=== PATIENT | female | born 1970 | race Caucasian/White ===

== ENCOUNTER 2019-06-02 08:35 | Inpatient (IN) ==
[2019-06-02] MEDS ORDERED: ZOFRAN IV ONE ×2 (09:15→12:41)
[2019-06-02] MEDS ORDERED: NS 1,000 ML IV ONE ×2 (09:15→13:35)
[2019-06-02 09:45] LABS: BILIRUBIN URINE NEGATIVE (NEGATIVE); BLOOD URINE 3+ (NEGATIVE); CLARITY VERY CLOUDY (CLEAR); COLOR YELLOW; KETONE URINE 2+(Moderate) mg/dL (NEGATIVE); LEUKOCYTES URINE TRACE (NEGATIVE); NITRITE URINE POSITIVE (NEGATIVE); PROTEIN URINE 2+(100 mg/dL) mg/dL (NEGATIVE); SP GRAVITY URINE 1.025; UROBILINOGEN URINE NORMAL
[2019-06-02 09:49] LABS: URINE BACTERIA 4+ /HFP; URINE CAST NONE SEEN /LPF; URINE CRYSTAL NONE SEEN /HPF; URINE EPITHELIAL CELLS <10 /HPF (<10); URINE RBC <10 /HPF (<10); URINE SOURCE CLEAN CATCH; URINE WBC <10 /HPF (<10); URINE YEAST NONE SEEN /HPF
[2019-06-02 09:56] LABS: BASO# 0.01 X1000 (0.0-0.2); BASO% 0.1 % (0.0-0.8); EOS# 0.04 X1000 (0.0-0.7); EOS% 0.3 % (0.0-10.0); HEMATOCRIT 48.7 % (37.0-47.0); HEMOGLOBIN 15.6 g/dL (12.0-16.0); IMM GRAN# 0.04 X1000 (0.0-0.04); IMM GRAN% 0.3 % (0.0-0.5); LYMPH# 0.92 X1000 (1.2-3.4); LYMPH% 6.3 % (20.5-51.1); MCH 28.8 PG (27-31); MONO# 0.68 X1000 (0.11-0.59); MONO% 4.6 % (1.7-9.3); MPV 10.9 FL (7.4-10.4); NEUT# 12.96 X1000 (1.4-6.5); NEUT% 88.4 % (42.2-75.2); PLT 308 X1000 (130-400); RBC 5.41 XMIL (4.2-5.4); RDW 13.5 % (11.5-14.5); WBC 14.65 X1000 (4.8-10.8)
[2019-06-02 10:06] LABS: AGAP 15; ALBUMIN 4.7 g/dL (3.5-5.0); ALKALINE PHOSPHATASE 97 U/L (32-104); BUN 11 mg/dL (8-22); CALCIUM 9.8 mg/dL (8.8-10.2); CHLORIDE 98 mmol/L (98-107); COSMO 285; CREATININE 0.7 mg/dL (0.5-0.9); ESTIMATED GFR > 60; GLUCOSE 140 mg/dL (70-104); GOT 31 U/L (10-30); GPT 36 U/L (10-36); POTASSIUM 3.7 mmol/L (3.5-5.1); SODIUM 142 mmol/L (136-145); TCO2 29 mmol/L (25-35); TOTAL PROTEIN 8.6 g/dL (6.3-8.3)
[2019-06-02] MEDS ORDERED: ROCEPHIN 1 GM in NS 50 ML IV ONE (10:34)
--- NOTE | 2019-06-02 11:37 | EKG Report ---
Test Performed on : 06/02/2019 09:39:18 AM Test Reason : CP Blood Pressure : / mmHG Vent. Rate : 077 BPM Atrial Rate : 077 BPM P-R Int : 124 ms QRS Dur : 084 ms QT Int : 398 ms P-R-T Axes : 024 029 031 degrees QTc Int : 450 ms Normal sinus rhythm. Normal ECG When compared with ECG of 30-NOV-2010 09:00, No significant change was found Unconfirmed Result
--- NOTE | 2019-06-02 13:12 | Diag Imaging Result Doc PS360 ---
EXAM: CT ABD/PELVIS W/IV CONT ONLY HISTORY: abd pain, elvated WBC, N/V/D TECHNIQUE: CT abdomen and pelvis with intravenous contrast COMPARISON: 03/14/2018 FINDINGS: The gallbladder has been removed. There is fatty infiltration of the liver. Tiny hiatal hernia. Normal spleen, pancreas, adrenal glands, and kidneys. No hydronephrosis. Normal aorta. There are air and fluid distended loops of small bowel in the mid abdomen measuring up to 4 cm in diameter. There is air and fluid within a nondistended colon. No inflammation about the cecum. No abscess. There are small bilateral ovarian cysts in addition to a 2.6 cm left ovarian cyst. The uterus has been removed. Urinary bladder is only mildly distended. IMPRESSION: 1.Partial or early small bowel obstruction 2.Cholecystectomy 3.Tiny hiatal hernia 4.There is fatty infiltration of the liver 5.Hysterectomy 6.Small left ovarian cyst This exam was performed using automated exposure control, adjustment of mA or kV according to patient size, and/or use of iterative reconstruction technique. Electronically signed by Nikita Ponce 06/02/2019 1:10 PM
--- NOTE | 2019-06-02 13:35 | PROVIDER DOCUMENTATION ---
This chart was entered by Rosangela Wright Scribe, acting as scribe for Jesika Razo CRNP. HPI-Abdominal Pain/GI Problem - General Chief Complaint: N/V/D Stated Complaint: VOMITING Time Seen by Provider: 06/02/19 09:03 Source: patient Allergies/Adverse Reactions: Patient Allergies Allergy/AdvReac Type Severity Reaction Status Date / Time No Known Allergies Allergy Verified 01/30/14 16:33 Home Medications: Home Medication List Medication Instructions Recorded Confirmed Last Taken Type Hydrocodone/APAP 7.5 mg/325 mg 1 each PO Q6H PRN PRN #20 tablet 01/31/14 03/14/18 03/13/18 Rx [[place]-7.5] 1 EACH Dextroamphetamine/Amphetamine 30 mg PO TID 03/14/18 03/14/18 1 Week Ago History [Adderall 30 mg Tablet] ~03/07/18 30 MG Diazepam [Valium] 5 mg PO BID 03/14/18 03/14/18 1 Week Ago History ~03/07/18 5 MG Polyethylene Glycol 3350 [Miralax] 17 gm PO DAILY #90 powd.pack 03/14/18 Unknown Rx - History of Present Illness-ABD Nature of Presenting Problems: 48 y/o female presents to ED with N/D, abdominal pain, and bloating onset 3 days ago and vomiting onset this morning. Pt reports her "stomach feels tight." Pt states her "chest felt tight" yesterday, but this has subsided. Pt is alert and oriented. Abdominal Pain Onset Location: reports: generalized abdomen Pain Radiation: reports: no radiation Quality of Pain: reports: aching Severity in ED: reports: mild Onset/Duration: reports: 3 days ago, this morning Timing: reports: still present Activities at Onset: reports: none Exposure to sick contacts?: No Modifying Factors: worse with: palpation Associated Symptoms: reports: diarrhea, nausea, vomiting, other (bloating; chest tightness) Last BM: unsure Dark Stools Present?: reports: none noticed Rectal Bleeding: reports: none Rectal Pain: reports: none Similar Symptoms Previously?: No Recently seen or treated by another doctor?: No Review of Systems - Adult - REVIEW OF SYSTEMS - ADULT Constitutional: denies: chills, fever Eyes: reports: no symptoms reported Ears, Nose, Mouth & Throat: reports: no symptoms reported Cardiovascular: denies: chest pain (tightness), palpitations Respiratory: denies: cough, shortness of breath Gastrointestinal: reports: abdominal pain, diarrhea, nausea, vomiting, other (bloating) Genitourinary: reports: no symptoms reported Musculoskeletal: denies: back pain, joint pain Integumentary: reports: no symptoms reported Neurological: denies: dizziness/vertigo, seizure Psychiatric: reports: no symptoms reported Endocrine: reports: no symptoms reported Hematologic/Lymphatic: reports: no symptoms reported Allergic/Immunologic: reports: no symptoms reported All Other Systems: Reviewed and Negative Past History - Adult - PAST MEDICAL HISTORY-ADULT Review of Records: reports: Old Records Reviewed, Nursing Assessment Review, Medications Reviewed Major Childhood Illnesses: reports: denies history Cardiovascular: reports: denies history Respiratory: reports: denies history Gastrointestinal: reports: denies history Obstetrical/Gynecological: reports: denies history Genitourinary: reports: denies history Musculoskeletal: reports: chronic pain (back pain) Neurological: reports: denies history Psychiatric: reports: anxiety, depression, ptsd Endocrine/Immune: reports: denies history Other Conditions: reports: denies history - PRIOR SURGERIES/PROCEDURES Surgical/Procedure History: reports: cholecystectomy, hysterectomy, other (facial surgery) - PRIOR HOSPITALIZATIONS Prior Hospitalizations: reports: none - IMMUNIZATION STATUS Childhood Immunizations: UTD Flu Vaccine: See Nurse Assessment - FAMILY HISTORY Family History: reviewed, not pertinent - SOCIAL HISTORY Smoking: greater than 1 pack/day Provider spent 3-5 mins advising pt. on dangers of tobacco.: Discussed manners to quit use, and f/u contacts for add'l counseling. Substance Use: none/never Alcohol Use Frequency: occasionally Living Situation: family Physical Exam-General - PHYSICAL EXAM-ADULT Initial Vital Signs Reviewed: Yes - CONSTITUTIONAL General Appearance: appears well, alert, no apparent distress - EYES Eyes: PERRL/EOMI, pink conjunctivae - HEAD, EARS, NOSE, MOUTH & THROAT HENMT: normocephalic/atraumatic, moist mucous membranes, normal ENT inspection - NECK Neck: non-tender, full range of motion - RESPIRATORY Respiratory: chest non-tender, lungs clear, normal breath sounds - CARDIOVASCULAR Cardiovascular: normal peripheral pulses, regular rate, rhythm - GASTROINTESTINAL (ABDOMEN) Abdominal Exam: soft, abnormal bowel sounds (hyperactive), distended, tenderness (periumbilical). negative: normal bowel sounds - MUSCULOSKELETAL Back Exam: normal inspection, no CVA tenderness Extremity: normal range of motion, non-tender - SKIN Integumentary: normal color, warm/dry - NEUROLOGIC Neurologic: grossly normal - PSYCHIATRIC Psych/Mental Status: normal mood/affect, normal thought content, normal thought process, oriented x 3 Progress - PLAN OF CARE/RESULTS Progress/Plan/Lab Results: Vital Signs - 8 hr 06/02/19 08:43 06/02/19 09:01 06/02/19 09:20 Temperature 97.5 F L Pulse Rate 86 Pulse Rate [Sitting] 85 Pulse Rate [Standing] 87 Pulse Rate [Supine] 78 Respiratory Rate 20 Blood Pressure 181/119 165/91 Blood Pressure [Sitting] 188/117 Blood Pressure [Standing] 176/109 Blood Pressure [Supine] 195/116 Orders Category Date Time Status ED: Orthostatic Vital Signs (E DIRECTED Care 06/02/19 08:52 Active Saline Loc NOW Care 06/02/19 09:16 Active AMYLASE [CHEM] Stat Lab 06/02/19 09:16 Ordered CBC WITH ELECTRONIC DIFF [HEME] Stat Lab 06/02/19 09:21 Ordered COMPREHENSIVE METABOLIC PANEL [CHEM] Stat Lab 06/02/19 09:21 Ordered TROPONIN T Stat Lab 06/02/19 09:16 Ordered UA NIMS W/REFLEX CULT PL [URINALYSIS] Stat Lab 06/02/19 09:21 Ordered 0.9% Sodium Chloride Inj [Ns] 1,000 ml Med 06/02/19 09:15 Active IV 999 mls/hr Ondansetron [Zofran] Med 06/02/19 09:15 Discontinued 4 mg IV NOW ONE EKG [EKG] Stat Ther 06/02/19 09:16 Ordered Laboratory Tests 06/02/19 06/02/19 09:32 09:35 WBC 14.65 H RBC 5.41 H Hgb 15.6 Hct 48.7 H MCV 90.0 MCH 28.8 MCHC 32.0 L RDW Std Deviation 13.5 Plt Count 308 MPV 10.9 H Immature Gran % (Auto) 0.3 Neut % (Auto) 88.4 H Lymph % (Auto) 6.3 L [place] % (Auto) 4.6 Eos % (Auto) 0.3 Baso % (Auto) 0.1 Immature Gran # (Auto) 0.04 Neut # (Auto) 12.96 H Lymph # (Auto) 0.92 L [place] # (Auto) 0.68 H Eos # (Auto) 0.04 Baso # (Auto) 0.01 Urine Source CLEAN CATCH Urine Color YELLOW Urine Clarity VERY CLOUDY A Urine pH 5.0 Ur Specific [place] 1.025 Urine Protein 2+(100 mg/dL) A Urine Ketones 2+(Moderate) A Urine Blood 3+ A Urine Nitrite POSITIVE A Urine Bilirubin NEGATIVE Urine Urobilinogen NORMAL Urine Microscopic RBC <10 Urine WBC TRACE A Urine Microscopic WBC <10 Ur Epithelial Cells <10 Urine Crystals NONE SEEN Urine Bacteria 4+ Urine Casts NONE SEEN Urine Yeast NONE SEEN Urine Glucose 1+(100 mg/dL) A Laboratory Tests 06/02/19 06/02/19 06/02/19 09:32 09:35 09:35 WBC RBC Hgb Hct MCV MCH MCHC RDW Std Deviation Plt Count MPV Immature Gran % (Auto) Neut % (Auto) Lymph % (Auto) [place] % (Auto) Eos % (Auto) Baso % (Auto) Immature Gran # (Auto) Neut # (Auto) Lymph # (Auto) [place] # (Auto) Eos # (Auto) Baso # (Auto) Sodium Potassium Chloride Carbon Dioxide Anion Gap BUN Creatinine Estimated GFR/1.73 m2 BUN/Creatinine Ratio Glucose Calculated Osmolality Calcium Total Bilirubin AST ALT Alkaline Phosphatase Troponin T < 0.010 Total Protein Albumin Globulin Albumin/Globulin Ratio Amylase 54 Urine Source CLEAN CATCH Urine Color YELLOW Urine Clarity VERY CLOUDY A Urine pH 5.0 Ur Specific [place] 1.025 Urine Protein 2+(100 mg/dL) A Urine Ketones 2+(Moderate) A Urine Blood 3+ A Urine Nitrite POSITIVE A Urine Bilirubin NEGATIVE Urine Urobilinogen NORMAL Urine Microscopic RBC <10 Urine WBC TRACE A Urine Microscopic WBC <10 Ur Epithelial Cells <10 Urine Crystals NONE SEEN Urine Bacteria 4+ Urine Casts NONE SEEN Urine Yeast NONE SEEN Urine Glucose 1+(100 mg/dL) A 06/02/19 06/02/19 09:35 09:35 WBC 14.65 H RBC 5.41 H Hgb 15.6 Hct 48.7 H MCV 90.0 MCH 28.8 MCHC 32.0 L RDW Std Deviation 13.5 Plt Count 308 MPV 10.9 H Immature Gran % (Auto) 0.3 Neut % (Auto) 88.4 H Lymph % (Auto) 6.3 L [place] % (Auto) 4.6 Eos % (Auto) 0.3 Baso % (Auto) 0.1 Immature Gran # (Auto) 0.04 Neut # (Auto) 12.96 H Lymph # (Auto) 0.92 L [place] # (Auto) 0.68 H Eos # (Auto) 0.04 Baso # (Auto) 0.01 Sodium 142 Potassium 3.7 Chloride 98 Carbon Dioxide 29 Anion Gap 15 BUN 11 Creatinine 0.7 Estimated GFR/1.73 m2 > 60 BUN/Creatinine Ratio 16 Glucose 140 H Calculated Osmolality 285 Calcium 9.8 Total Bilirubin 0.40 AST 31 H ALT 36 Alkaline Phosphatase 97 Troponin T Total Protein 8.6 H Albumin 4.7 Globulin 4.0 Albumin/Globulin Ratio 1.0 Amylase Urine Source Urine Color Urine Clarity Urine pH Ur Specific [place] Urine Protein Urine Ketones Urine Blood Urine Nitrite Urine Bilirubin Urine Urobilinogen Urine Microscopic RBC Urine WBC Urine Microscopic WBC Ur Epithelial Cells Urine Crystals Urine Bacteria Urine Casts Urine Yeast Urine Glucose called CT as no read, awaiting read Result Diagrams: 06/02/19 09:35 06/02/19 09:35 - EKG 1 Time of EKG reading by physician:: 09:39 EKG Read and Signed by:: Jose Kaur EKG Interpretation (*Must complete 3 of following elements*): Normal Rate: 77 Rhythm: NSR [place]: normal QRS: normal [place] Interval: normal ST Wave: normal - CT/MRI 1 CT Study: Abdomen, Pelvis Impression: See EMR Report (EXAM: CT ABD/PELVIS W/IV CONT ONLY HISTORY: abd pain, elvated WBC, N/V/D TECHNIQUE: CT abdomen and pelvis with intravenous contrast COMPARISON: 03/14/2018 FINDINGS: The gallbladder has been removed. There is fatty infiltration of the liver. Tiny hiatal hernia. Normal spleen, pancreas, adrenal glands, and kidneys. No hydronephrosis. Normal aorta. There are air and fluid distended loops of small bowel in the mid abdomen measuring up to 4 cm in diameter. There is air and fluid within a nondistended colon. No inflammation about the cecum. No abscess. There are small bilateral ovarian cysts in addition to a 2.6 cm left ovarian cyst. The uterus has been removed. Urinary bladder is only mildly distended. IMPRESSION: 1.Partial or early small bowel obstruction 2.Cholecystectomy 3.Tiny hiatal hernia 4.There is fatty infiltration of the liver 5.Hysterectomy 6.Small left ovarian cyst This exam was performed using automated exposure control, adjustment of mA or kV according to patient size, and/or use of iterative reconstruction technique. Electronically signed by Nikita Ponce 06/02/2019 1:10 PM 06/02/19 1310 Interpreting Physician: Nikita Ponce MD Dictated Date/Time: 06/02/19 1305 cc: Jesika Razo; None,PCP) - CONSULTS/PCP/HOSPITALIST Notification #1 *Consult/PCP/Hospitalist*: Time Discussed: 13:29 Reason/Comments: okay to admit at [facility] #2 Consult: Dr. Garay Time Discussed: 13:34 Consult Disposition: Admit Departure - Departure Date of Disposition Decision: 06/02/19 Time of Disposition Decision: 13:23 DIAGNOSIS: Partial small bowel obstruction UTI (urinary tract infection) Qualifiers: Urinary tract infection type: site unspecified Disposition: ADMITTED INPATIENT 09 Certified Medical Emergency: Emergent Condition: Stable Referrals and Follow-Ups: None,PCP [Primary Care Provider] - Discharge Education: Steps to Quit Smoking, [id number] - Critical Care Note This patient required my direct & personal management of CC.: No Attestation - Physician/ MARINO Attestation Patient care was provided by Advanced Practice Provider:: Yes Advanced Practice Provider:: Jesika Razo Advanced Practice Provider documentation review:: The Mid-level provider documentation, treatment plan and medical decision making was reviewed by the physician who agrees with all treatment and medical decision making by the P. The physician spent face to face time with patient:: No Advanced Practice Provider documentation review:: Supervising physician onsite and consulted in the evaluation and care of this patient. The physician did not have a face to face encounter with the patient. This chart was documented by the indicated scribe, (Rosangela Wright Scribe) and accurately reflects the services I performed and decisions made by me, Jesika Razo CRNP, as attested by the provider's signature.
--- NOTE | 2019-06-02 15:04 | GENERAL SURGERY CONSULTATION ---
DATE: 06/02/2019 REQUESTING PRACTITIONER: Jesika Razo, nurse practitioner in emergency room. REASON FOR CONSULTATION: Partial small bowel obstruction. HISTORY OF PRESENT ILLNESS: This is a 48-year-old female with a 3-day history of abdominal distention, bloating, multiple episodes of nausea and vomiting and multiple episodes of diarrhea. She does not know of any recent sick contacts. She also complains of some headache, malaise and some chills. The symptoms are exacerbated by walking around. No relieving factors. She had 1 prior episode which she came to the ER a year ago for milder symptoms. This is more severe. She was not admitted last year. PAST MEDICAL HISTORY: ADHD. PAST SURGICAL HISTORY: Laparoscopic cholecystectomy. ALLERGIES: No known drug allergies. HOME MEDICATIONS: None currently. SOCIAL HISTORY: She smokes tobacco and marijuana. She denies alcohol or other illicit drug use. FAMILY HISTORY: Reviewed and noncontributory. REVIEW OF SYSTEMS: Ten systems reviewed and negative except as noted above. PHYSICAL EXAMINATION: Vital Signs: Temperature 98.3 degrees, pulse 53, respirations 18, blood pressure 157/95, O2 saturation 96%. General: Well-developed, well-nourished female in no distress who looks stated age. HEENT: Normocephalic, atraumatic. Extraocular muscles intact. Pupils equal, round, reactive to light. Sclerae anicteric. Moist mucous membranes. Hearing grossly normal. No oral lesions. Neck: Supple. No thyromegaly. CV: Regular rate and rhythm. Respiratory: Bilateral breath sounds. No work of breathing GI: Soft, mildly distended. No organomegaly or mass. Mild tenderness. No rebound or guarding. Extremities: No clubbing, cyanosis, or edema. Skin: Warm and dry. No rash. Musculoskeletal: Moves all extremities equally and well. LABORATORY: White blood cell count 14,000, hemoglobin 15. Electrolytes reviewed and unremarkable. Liver function tests are unremarkable. Urinalysis appears positive for UTI. IMAGING: Abdominal pelvis CT scan shows multiple loops of distended bowel with air and fluid. There is also air and fluid in the colon, throughout the right transverse, descending colon, as well as rectum. No free air. No abscess. ASSESSMENT AND PLAN: A 48-year-old female with abdominal pain, nausea, vomiting, diarrhea, likely of infectious etiology, viral versus bacterial. There does not appear to be any significant mechanical obstruction. There are no acute surgical indications. Thank you for the consultation. cc: Jas Duran MD
[2019-06-02] MEDS: ZOFRAN IV PRN (15:17)
[2019-06-02] MEDS: MORPHINE IV PRN ×2 (17:20→21:17)
[2019-06-02] MEDS: ATIVAN IV PRN ×2 (17:21→23:08)
[2019-06-02] MEDS ORDERED: ATIVAN IV ONE (17:59)
--- NOTE | 2019-06-02 18:06 | HISTORY AND PHYSICAL ---
CHIEF COMPLAINT: Abdominal pain. HISTORY OF PRESENT ILLNESS: This is a 48-year-old female who came into the emergency room with a 2-day history of worsening generalized cramping abdominal pain associated with nausea and vomiting. She states that her last bowel movement was approximately 3 days ago. She states that her abdomen was getting more and more distended, because of which she had to come into the hospital for further care. She denies having any fever or dysuria. PAST MEDICAL HISTORY: 1. Attention deficit disorder. 2. Anxiety disorder. 3. Chronic back pain. SOCIAL HISTORY: Patient smokes 1 pack of cigarettes every day and occasionally drinks alcohol as well. She also smokes marijuana on a regular basis. FAMILY HISTORY: Noncontributory. ALLERGIES: No known drug allergies reported. CURRENT HOME MEDICATIONS: [place] 7.5 mg twice daily as needed for back pain, diazepam 5 mg twice daily as needed for anxiety symptoms, Adderall 30 mg orally 3 times a day. REVIEW OF SYSTEMS: A full 14-point review of systems was obtained that was pretty much the same as already has been explained in the HPI. PHYSICAL EXAMINATION: VITAL SIGNS: Temperature 98.0 degrees, pulse 81 per minute, respiratory rate 16 per minute, blood pressure 170/91, pulse ox 96% on room air. GENERAL: Patient is alert and oriented x3. She does not appear to be in any acute distress. HEENT: Within normal limits. NECK: Supple without any thyromegaly. LYMPHATICS: No lymphadenopathy noted in the neck region. CHEST: Chest wall is nontender. CARDIOVASCULAR SYSTEM: First and second heart sounds are audible without any murmurs or gallops. RESPIRATORY SYSTEM: Bilateral lung air entry is moderately decreased, but there are no rales or rhonchi present on auscultation. GASTROINTESTINAL SYSTEM: Abdomen is slightly distended. It is soft and slightly tender on deep palpation all over. No guarding or rigidity are present. There is also no rebound tenderness. Bowel sounds are hyperactive. NEUROLOGIC: No focal deficits are present. PSYCHIATRIC: Normal affect noted. GENITOURINARY: Deferred. MUSCULOSKELETAL SYSTEM: No deformities are present. INTEGUMENTARY: Skin is warm and dry without any rash. DIAGNOSTIC DATA: CBC shows WBC count of 14.65 with 88.4% neutrophils. Rest of the CBC is nondiagnostic. Comprehensive metabolic panel showed glucose level of 140. Rest of the CMP is nondiagnostic. Urinalysis showed trace WBCs with nitrite positive. CT scan of the abdomen and pelvis obtained at the emergency room with IV contrast showed partial or early small bowel obstruction. IMPRESSION: 1. Abdominal pain secondary to partial small-bowel obstruction. 2. Urinary tract infection. 3. Anxiety disorder. PLAN: The patient will be admitted here at [facility], and we are going to give her IV fluids and keep her n.p.o. I am going to give her morphine sulfate on as- needed basis for acute pain relief and give her ondansetron 4 mg IV every 4 hours as needed for nausea and vomiting relief. We will also give her lorazepam 1 mg IV as needed for anxiety symptoms and put a nicotine patch on, since she is a chronic smoker. We will also continue with ceftriaxone 1 gram IV every 24 hours which has already been started at the emergency room. We are going to place an NG tube and attach it to low intermittent suction and monitor her response to these measures. We will follow hospital course. cc: Taylor Garay MD
--- NOTE | 2019-06-02 18:10 | Diag Imaging Result Doc PS360 ---
EXAM: CHEST-PORTABLE HISTORY: NG-tube placement TECHNIQUE: Chest single view COMPARISON: 06/08/2012 FINDINGS: Nasogastric tube overlies the esophagus. Due to the technique it is difficult to see if it truly enters the stomach. No free air beneath the diaphragm. IMPRESSION: Additional films recommended. Electronically signed by Nikita Ponce 06/02/2019 6:08 PM
[2019-06-02] MEDS: NICODERM PATCH TD SCH (18:14)
[2019-06-02] MEDS ORDERED: CHLORASEPTIC SPRAY MT PRN (19:31)
[2019-06-03] MEDS ORDERED: HALDOL IV PRN (00:27)
[2019-06-03] MEDS: NS 1,000 ML IV SCH ×3 (00:47→16:10)
[2019-06-03 06:26] LABS: BASO# 0.01 X1000 (0.0-0.2); BASO% 0.1 % (0.0-0.8); EOS# 0.14 X1000 (0.0-0.7); EOS% 1.3 % (0.0-10.0); HEMATOCRIT 41.4 % (37.0-47.0); HEMOGLOBIN 13.1 g/dL (12.0-16.0); IMM GRAN# 0.02 X1000 (0.0-0.04); IMM GRAN% 0.2 % (0.0-0.5); LYMPH# 1.97 X1000 (1.2-3.4); LYMPH% 18.8 % (20.5-51.1); MCH 28.8 PG (27-31); MCHC 31.6 g/dL (33-37); MONO# 0.97 X1000 (0.11-0.59); MONO% 9.2 % (1.7-9.3); MPV 10.6 FL (7.4-10.4); NEUT# 7.39 X1000 (1.4-6.5); NEUT% 70.4 % (42.2-75.2); PLT 239 X1000 (130-400); RBC 4.55 XMIL (4.2-5.4); RDW 13.7 % (11.5-14.5)
[2019-06-03 06:48] LABS: AGAP 10; ALBUMIN 3.4 g/dL (3.5-5.0); ALKALINE PHOSPHATASE 75 U/L (32-104); BUN 7 mg/dL (8-22); CALCIUM 8.3 mg/dL (8.8-10.2); CHLORIDE 104 mmol/L (98-107); COSMO 276; CREATININE 0.6 mg/dL (0.5-0.9); ESTIMATED GFR > 60; GLUCOSE 100 mg/dL (70-104); GOT 45 U/L (10-30); GPT 47 U/L (10-36); SODIUM 139 mmol/L (136-145); TCO2 24 mmol/L (25-35); TOTAL PROTEIN 6.6 g/dL (6.3-8.3)
[2019-06-03] MEDS: ROCEPHIN 1 GM in NS 50 ML IV SCH (10:34)
[2019-06-03] MEDS: MORPHINE IV PRN ×2 (11:17→21:31)
[2019-06-03] MEDS: ATIVAN IV PRN (11:18)
--- NOTE | 2019-06-03 13:44 | Diag Imaging Result Doc PS360 ---
EXAM: ABDOMEN FLAT/UPRIGHT 06/03/2019 HISTORY: sbo TECHNIQUE: Flat and upright abdomen COMMENT: There is an NG tube with its tip in the fundus the stomach. There are surgical clips in the right upper quadrant. There is some stool in the colon without evidence of dilatation. The small bowel is not distended. There is no evidence organomegaly or mass. Compared to 03/14/2018 there is somewhat less stool in the colon. IMPRESSION: No evidence of bowel obstruction. Electronically signed by Pepe Burgos 06/03/2019 1:41 PM
[2019-06-03] MEDS: POTASSIUM CHLORIDE 20 MEQ/SWI 20 MEQ/100 ML IVPB IV SCH ×2 (13:52→16:06)
--- NOTE | 2019-06-03 15:45 | PROGRESS NOTE ---
DATE: 06/03/2019 SUBJECTIVE: Patient reports still having mild abdominal pain but she reports passing gases but no bowel movement yet. OBJECTIVE: Vitals: Temperature 98.1, heart rate 75, respiratory 16, blood pressure 141/97, O2 saturation 96% on room air. General: This is a 48-year-old female lying in bed in no acute distress. Cardiovascular: S1, S2 heard. No murmurs, gallops, or rubs. Regular rate and rhythm. Respiratory: Clear bilaterally to auscultation. No work of breathing or using accessory muscles. Abdomen: A little bit distended with bowel sounds present but distant. No guarding or rigidity, no rebound. Extremities: No clubbing, cyanosis, or edema. Peripheral pulses present in both legs. Neurologic: Patient alert, oriented x3, moves 4 extremities. LABORATORY DATA: Reviewed. Abdominal x-ray done today showed no evidence of bowel obstruction. ASSESSMENT AND PLAN: 1. Abdominal pain secondary to partial small bowel obstruction. The x-ray from today did not show any obstruction. General Surgery has been consulted. The NG tube is recollecting lot of drainage so at this point will see what is the baseline to switch to clear liquid diet. Will leave that decision to General Surgery. Will continue with IV fluids. Patient also had urinary tract infection. She is on ceftriaxone, will see what the urine culture shows. 2. For anxiety disorder will continue with home medications in this case lorazepam and Haldol IV as well. cc: Erik Joshi MD
[2019-06-03] MEDS: NICODERM PATCH TD SCH (16:06)
[2019-06-03] MEDS ORDERED: MINERAL OIL NG ONE (17:28)
--- NOTE | 2019-06-03 17:47 | GENERAL SURGERY PROGRESS NOTE ---
DATE: 06/03/2019 SUBJECTIVE: The patient complains of throat discomfort and pain from the NG tube in her nose. She denies abdominal pain. No flatus or bowel movement today. OBJECTIVE: Vital signs: She is afebrile. Vital signs are stable. NG tube output is recorded as 900 mL since it was put in. General: She is awake and anxious. Gastrointestinal: Soft, nontender, nondistended. LABORATORY: White blood cell count 10, hemoglobin 13, hematocrit 41. Electrolytes reviewed and notable for a potassium of 3.0. IMAGING: Abdominal x-ray today showed stool in the colon without dilation. The small bowel is not distended. ASSESSMENT AND PLAN: A 48-year-old female with recent history of nausea, vomiting, diarrhea, and abdominal pain. Her symptoms have gradually improved. However, she has had a significant amount of NG tube output today. We will plan a small bowel follow-through tomorrow. If it shows no obstruction, then we will remove the NG tube and advance her diet as tolerated. cc: Jas Duran MD
[2019-06-03] MEDS ORDERED: FLEET MINERAL OIL ENEMA PR ONE (19:35)
[2019-06-03] MEDS: ZOFRAN IV PRN (21:31)
[2019-06-04] MEDS: MORPHINE IV PRN ×2 (03:51→09:48)
[2019-06-04] MEDS: ZOFRAN IV PRN ×2 (03:51→09:49)
[2019-06-04] MEDS: NS 1,000 ML IV SCH ×3 (03:52→19:35)
[2019-06-04 06:30] LABS: BASO# 0.01 X1000 (0.0-0.2); BASO% 0.1 % (0.0-0.8); EOS# 0.16 X1000 (0.0-0.7); EOS% 1.2 % (0.0-10.0); HEMATOCRIT 40.4 % (37.0-47.0); HEMOGLOBIN 12.9 g/dL (12.0-16.0); IMM GRAN# 0.03 X1000 (0.0-0.04); IMM GRAN% 0.2 % (0.0-0.5); LYMPH# 2.01 X1000 (1.2-3.4); LYMPH% 15.3 % (20.5-51.1); MCH 28.9 PG (27-31); MCHC 31.9 g/dL (33-37); MCV 90.4 FL (81-99); MONO# 1.29 X1000 (0.11-0.59); MONO% 9.8 % (1.7-9.3); MPV 10.8 FL (7.4-10.4); NEUT# 9.63 X1000 (1.4-6.5); NEUT% 73.4 % (42.2-75.2); PLT 243 X1000 (130-400); RBC 4.47 XMIL (4.2-5.4); RDW 13.2 % (11.5-14.5); WBC 13.13 X1000 (4.8-10.8)
[2019-06-04 06:48] LABS: AGAP 10; BUN 6 mg/dL (8-22); CALCIUM 8.6 mg/dL (8.8-10.2); CHLORIDE 106 mmol/L (98-107); COSMO 277; CREATININE 0.5 mg/dL (0.5-0.9); ESTIMATED GFR > 60; GLUCOSE 90 mg/dL (70-104); POTASSIUM 3.5 mmol/L (3.5-5.1); SODIUM 140 mmol/L (136-145); TCO2 24 mmol/L (25-35)
[2019-06-04] MEDS: NICODERM PATCH TD SCH (09:27)
--- NOTE | 2019-06-04 10:17 | Diag Imaging Result Doc PS360 ---
EXAM: SMALL BOWEL SERIES ONLY HISTORY: nausea, vomiting, high ngt output TECHNIQUE: Eight films obtained COMPARISON: None. FINDINGS: Contrast was used to fill and distend the small bowel. Normal mucosal pattern. No bowel obstruction. No mass or stricture. Transit into the colon by 30 minutes. Normal terminal ileum. IMPRESSION: Normal small bowel series. Electronically signed by Nikita Ponce 06/04/2019 10:15 AM
[2019-06-04] MEDS: ROCEPHIN 1 GM in NS 50 ML IV SCH (10:38)
[2019-06-04] MEDS: ATIVAN IV PRN (10:38)
--- NOTE | 2019-06-04 12:17 | PROGRESS NOTE ---
DATE: 06/04/2019 SUBJECTIVE: The patient reports feeling fine. No abdominal pain. The NG tube output is definitely less in comparing with yesterday. OBJECTIVE: Vital Signs: Temperature 98.3 degrees, heart rate 83, respiratory rate 20, blood pressure 158/92, O2 saturation 97% on room air. General: This is a 48-year-old female, lying in bed in no acute distress. Cardiovascular: S1, S2 heard. No murmurs, gallops, or rubs. Regular rate and rhythm. Respiratory: Clear bilaterally to auscultation. No work of breathing or using accessory muscles. Abdomen: Soft, nontender to palpation. Bowel sounds present. No organomegaly. Extremities: No clubbing, cyanosis, or edema. Peripheral pulses present in both legs. Neurological: The patient alert and oriented x3. Moves all 4 extremities. IMAGING AND LABORATORY DATA: Reviewed. Small bowel x-ray showed normal studies. ASSESSMENT AND PLAN: 1. Partial small-bowel obstruction. The small bowel series shows normal exam, so at this point we are going to remove nasogastric tube. Will start clear liquids and see how this patient does. General Surgery is also following this patient. Will follow recommendations. 2. Urinary tract infection secondary to Escherichia coli. The patient is currently on ceftriaxone. I think, at this point, will continue with the same management. At discharge, considering that this Escherichia coli sensitive to cefazolin, we can send her home with a week of cephalexin. 3. Disposition. Will start clear liquid diet today. Will advance diet as tolerated. If she is doing better tomorrow, will let her go tomorrow. cc: Erik Joshi MD MTDOsman
[2019-06-04] MEDS: VALIUM PO SCH (21:21)
--- NOTE | 2019-06-04 21:28 | GENERAL SURGERY PROGRESS NOTE ---
DATE: 06/04/2019 SUBJECTIVE: The patient feels a lot better. She denies significant pain nausea or vomiting. She did have some diarrhea. She has started clear liquids and has been tolerating it. OBJECTIVE: Vital Signs: She is afebrile. Vital signs are stable. General: She is awake, alert, and oriented x3. No acute distress. Gastrointestinal: Soft, nontender, nondistended. LABORATORY: White blood cell count 13,000, hemoglobin 12.9. Electrolytes reviewed and unremarkable. IMAGING: Her small bowel follow-through was normal. ASSESSMENT AND PLAN: A 48-year-old female with abdominal pain, nausea, vomiting, and diarrhea. She does not have a bowel obstruction. There does not appear to be any acute surgical indication. I will sign off. cc: Jas Duran MD
[2019-06-05] MEDS: NORCO-7.5 PO PRN ×2 (05:49→13:54)
[2019-06-05 06:32] LABS: BASO# 0.02 X1000 (0.0-0.2); BASO% 0.2 % (0.0-0.8); EOS# 0.23 X1000 (0.0-0.7); EOS% 2.2 % (0.0-10.0); HEMATOCRIT 40.4 % (37.0-47.0); IMM GRAN# 0.03 X1000 (0.0-0.04); IMM GRAN% 0.3 % (0.0-0.5); LYMPH# 2.38 X1000 (1.2-3.4); LYMPH% 22.9 % (20.5-51.1); MCH 28.8 PG (27-31); MCHC 32.2 g/dL (33-37); MCV 89.6 FL (81-99); MONO% 10.6 % (1.7-9.3); MPV 11.1 FL (7.4-10.4); NEUT# 6.63 X1000 (1.4-6.5); NEUT% 63.8 % (42.2-75.2); PLT 245 X1000 (130-400); RBC 4.51 XMIL (4.2-5.4); RDW 13.3 % (11.5-14.5); WBC 10.39 X1000 (4.8-10.8)
[2019-06-05 06:42] LABS: AGAP 10; BUN 7 mg/dL (8-22); CALCIUM 8.8 mg/dL (8.8-10.2); CHLORIDE 103 mmol/L (98-107); COSMO 275; CREATININE 0.6 mg/dL (0.5-0.9); ESTIMATED GFR > 60; GLUCOSE 94 mg/dL (70-104); POTASSIUM 3.3 mmol/L (3.5-5.1); SODIUM 139 mmol/L (136-145); TCO2 25 mmol/L (25-35)
[2019-06-05] MEDS ORDERED: KLOR-CON PO ONE (07:11)
[2019-06-05] MEDS: VALIUM PO SCH (08:08)
[2019-06-05] MEDS: NICODERM PATCH TD SCH (08:10)
[2019-06-05] MEDS ORDERED: MACRODANTIN PO SCH (09:00)
--- NOTE | 2019-06-05 09:24 | Diag Imaging Result Doc PS360 ---
EXAM: KUB ABDOMEN - 06/05/2019 HISTORY: sbo TECHNIQUE: Portable AP spine abdomen COMPARISON: 06/03/2019 FINDINGS: There is some residual barium from the 06/04/2019 small bowel series in the colon. There is slight gaseous distention of stomach. The bowel gas pattern is otherwise unremarkable. There is no abnormal gaseous small bowel distention identified. There are surgical clips at the right upper quadrant. IMPRESSION: Slight gaseous distention of stomach. Otherwise unremarkable bowel gas pattern. Electronically signed by Liam Adams 06/05/2019 9:22 AM
[2019-06-05 11:16] VITALS: BP 139/79
--- NOTE | 2019-06-05 16:10 | DISCHARGE SUMMARY ---
ADMISSION DATE: 06/02/2019 DISCHARGE DATE: 06/05/2019 CONSULTATIONS: Dr. Jas Duran with General surgery. PERTINENT PROCEDURES: 1. Abdomen and pelvis CT with partial or early small bowel obstruction, cholecystectomy, tiny hiatal hernia. Fatty infiltration of liver, hysterectomy. Small left ovarian cyst. 2. Abdominal x-ray, no evidence of bowel obstruction. 3. Small bowel x-ray, normal small bowel series. 4. Abdominal x-ray, slight gaseous distention of the stomach, otherwise unremarkable bowel gas pattern. DISCHARGE DIAGNOSES: 1. Partial small bowel obstruction. Small bowel series shows a normal exam. She was followed by GI. She did have an NG tube inserted that had been discharged. The patient was started on clear liquids and advance as tolerated. She is now tolerating a GI soft diet, passing gas. She had a bowel movement. 2. Urinary tract infection, Escherichia coli that was negative for extended spectrum beta- lactamase, but is resistant to Bactrim, ampicillin and levofloxacin. She was switched from IV to p.o. Macrodantin and will be discharged with 5 more doses. 3. Attention deficit hyperactivity disorder. 4. Anxiety disorder. 5. Chronic back pain. HISTORY OF PRESENT ILLNESS: Ms. Stovall is a 48-year-old female who came to the ED complaining a 2-day history of worsening generalized cramping, abdominal pain associated with nausea and vomiting. Her last bowel movement was 3 days prior to admission. She felt her abdomen was getting more distended and came to the ED for further evaluation. There was question of an early or partial small-bowel obstruction. An NG tube was inserted and she was treated for urinary tract infection and brought general surgery on board. Continue with serial abdominal film. They did a small bowel follow through, which was normal. Her NG tube was removed. She was started on clear liquids and advanced to a GI soft diet, which she has tolerated well and will be discharged home today. Her KUB did not show any bowel obstruction. VITAL SIGNS: At time of discharge, temperature is 98.5 degrees, heart rate 82, respirations 16, blood pressure 139/79, O2 is 100% on room air. DISCHARGE DIET: GI soft. Continue to slowly advance as tolerated. DISCHARGE MEDICATIONS: 1. Adderall 30 mg p.o. t.i.d. 2. [place] 7.5/325 one each p.o. b.i.d. 3. Valium 5 mg p.o. b.i.d. 4. Macrodantin 50 mg p.o. b.i.d. for 5 more tablets. FOLLOW-UP AND DISCHARGE INSTRUCTIONS: Ms. Stovall is being discharged back home with self care. She is to follow up with her primary care provider within the next week. She can return to the ED or call 911 for any worsening or return of symptoms. Dictated by CHIKA Mohan for Eliecer Gunter MD cc: MD Mingo Horne MD Gregory S. Cheatham, MD
--- NOTE | 2019-06-05 19:48 | PROGRESS NOTE ---
DATE: 06/05/2019 SUBJECTIVE: Patient notes that she is feeling okay, although she attempted to drink some earlier, and her abdominal pain appeared to be getting worse. Therefore, she stopped. She denies any current fevers or chills. PHYSICAL EXAMINATION: Vital Signs: Reviewed. General: She is awake, alert. She is in no distress. HEENT: Normocephalic. Neck: Supple. Cardiovascular: Regular rate. No murmurs. Chest: Clear. Abdomen: Soft. Extremities: Moves all extremities. Neurologic: No changes. ASSESSMENT: 1. Partial small-bowel obstruction. 2. Urinary tract infection, on Rocephin. PLAN: We are going to continue patient in the hospital. We are going to check a KUB. Will attempt to advance her diet and will follow. ADDENDUM: Patient's KUB was normal. She was able to eat and drink without any difficulty, and therefore we will discharge her home. Please see full note. cc: Eliecer Gunter MD
== END 2019-06-05 15:10 | disposition home or self-care (01) | DRG 389 ==
LOC: P.ED 08:35 → SUATTDRO 13:54 → P.MEDSURG 13:54
PROVIDERS: ATTEND Family Medicine

== ENCOUNTER 2019-07-29 04:31 | Inpatient (IN) ==
[2019-07-29] MEDS ORDERED: ZOFRAN IV ONE ×2 (05:03→07:28)
[2019-07-29] MEDS ORDERED: DILAUDID IV ONE (05:03)
[2019-07-29 06:21] LABS: BASO# 0.04 X1000 (0.0-0.2); BASO% 0.1 % (0.0-0.8); EOS# 0.16 X1000 (0.0-0.7); EOS% 0.6 % (0.0-10.0); HEMATOCRIT 53.1 % (37.0-47.0); HEMOGLOBIN 16.8 g/dL (12.0-16.0); IMM GRAN# 0.11 X1000 (0.0-0.04); IMM GRAN% 0.4 % (0.0-0.5); LYMPH# 1.02 X1000 (1.2-3.4); LYMPH% 3.6 % (20.5-51.1); MCH 28.5 PG (27-31); MCHC 31.6 g/dL (33-37); MCV 90.2 FL (81-99); MONO# 0.95 X1000 (0.11-0.59); MONO% 3.3 % (1.7-9.3); MPV 11.7 FL (7.4-10.4); NEUT# 26.11 X1000 (1.4-6.5); PLT 317 X1000 (130-400); RBC 5.89 XMIL (4.2-5.4); RDW 13.1 % (11.5-14.5); WBC 28.39 X1000 (4.8-10.8)
[2019-07-29 06:26] LABS: ALBUMIN 4.5 g/dL (3.5-5.0); POTASSIUM 3.2 mmol/L (3.5-5.1); TOTAL BILIRUBIN 0.27 mg/dL (0.20-1.00)
--- NOTE | 2019-07-29 07:11 | PROVIDER DOCUMENTATION ---
HPI-Abdominal Pain/GI Problem - General Chief Complaint: SEPSIS ALERT - D Stated Complaint: POSS. SBO Time Seen by Provider: 07/29/19 04:51 Source: patient, family Allergies/Adverse Reactions: Patient Allergies Allergy/AdvReac Type Severity Reaction Status Date / Time No Known Allergies Allergy Verified 01/30/14 16:33 Home Medications: Home Medication List Medication Instructions Recorded Confirmed Last Taken Type Dextroamphetamine/Amphetamine 30 mg PO TID 03/14/18 07/29/19 1 Week Ago History [Adderall 30 mg Tablet] ~03/07/18 30 MG Diazepam [Valium] 5 mg PO BID 03/14/18 07/29/19 1 Week Ago History ~03/07/18 5 MG Hydrocodone/APAP 7.5 mg/325 mg 1 ea PO BID 06/02/19 07/29/19 Unknown History [[place]-7.5] - History of Present Illness-ABD Nature of Presenting Problems: 48 y/o WF c/o severe generalized abdo pain that started last night waking her up. She relates that she has had 15 episodes of vomiting and 20 episodes of diarrhea since onset adding that this is similar to her previous cases of SBO. Abdominal Pain Onset Location: reports: generalized abdomen Pain Radiation: reports: no radiation Quality of Pain: reports: aching, cramping Severity in ED: reports: moderate Onset/Duration: reports: 24 hours ago Timing: reports: still present Activities at Onset: reports: rest Exposure to sick contacts?: No Modifying Factors: improves with: movement, palpation Associated Symptoms: reports: diarrhea, nausea, vomiting Last BM: this morning Dark Stools Present?: reports: none noticed Rectal Bleeding: reports: none # of Diarrhea Episodes: 20 Rectal Pain: reports: none # of Vomiting Episodes: 15 Emesis Description: reports: clear Bruising or Bleeding Gums?: No Similar Symptoms Previously?: Yes Recently seen or treated by another doctor?: No Review of Systems - Adult - REVIEW OF SYSTEMS - ADULT Constitutional: reports: no symptoms reported, see HPI Eyes: reports: no symptoms reported, see HPI Ears, Nose, Mouth & Throat: reports: no symptoms reported, see HPI Cardiovascular: reports: no symptoms reported, see HPI Respiratory: reports: no symptoms reported, see HPI Gastrointestinal: reports: see HPI, abdominal pain, diarrhea, nausea, vomiting Genitourinary: reports: no symptoms reported, see HPI Musculoskeletal: reports: no symptoms reported, see HPI Integumentary: reports: no symptoms reported, see HPI Neurological: reports: no symptoms reported, see HPI Psychiatric: reports: no symptoms reported, see HPI Endocrine: reports: no symptoms reported, see HPI Hematologic/Lymphatic: reports: no symptoms reported, see HPI Allergic/Immunologic: reports: no symptoms reported, see HPI All Other Systems: Reviewed and Negative Past History - Adult - PAST MEDICAL HISTORY-ADULT Review of Records: reports: Nursing Assessment Review, Medications Reviewed, Social history reviewed & non-contributory. Major Childhood Illnesses: reports: denies history Cardiovascular: reports: denies history Respiratory: reports: denies history Gastrointestinal: reports: denies history Obstetrical/Gynecological: reports: denies history Genitourinary: reports: denies history Musculoskeletal: reports: chronic pain (back pain) Neurological: reports: denies history Psychiatric: reports: anxiety, depression, ptsd Endocrine/Immune: reports: denies history Other Conditions: reports: denies history - PRIOR SURGERIES/PROCEDURES Surgical/Procedure History: reports: cholecystectomy, hysterectomy, other (facial surgery) - PRIOR HOSPITALIZATIONS Prior Hospitalizations: reports: none - IMMUNIZATION STATUS Childhood Immunizations: UTD Flu Vaccine: See Nurse Assessment - FAMILY HISTORY Family History: reviewed, not pertinent Physical Exam-General - PHYSICAL EXAM-ADULT Initial Vital Signs Reviewed: Yes - CONSTITUTIONAL General Appearance: appears well, alert, no apparent distress - EYES Eyes: PERRL/EOMI - HEAD, EARS, NOSE, MOUTH & THROAT HENMT: normocephalic/atraumatic, moist mucous membranes - NECK Neck: non-tender, full range of motion, supple, normal inspection - RESPIRATORY Respiratory: chest non-tender, lungs clear, normal breath sounds, no pleuratic chest pain, no respiratory distress, no accessory muscle use - CARDIOVASCULAR Cardiovascular: normal peripheral pulses, regular rate, rhythm, no edema, no gallop, no JVD, no murmur - GASTROINTESTINAL (ABDOMEN) Abdominal Exam: normal bowel sounds, soft, no organomegaly, no pulsatile mass, tenderness - LYMPHATIC Lymphatic: no adenopathy - MUSCULOSKELETAL Back Exam: normal inspection, no CVA tenderness, no vertebral tenderness Extremity: normal range of motion, non-tender, normal gait, normal inspection, no pedal edema, no calf tenderness, normal capillary refill - SKIN Integumentary: normal color, normal turgor - NEUROLOGIC 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, grossly normal, no motor/sensory deficits - PSYCHIATRIC Psych/Mental Status: normal mood/affect, normal thought content, normal thought process, oriented x 3 Progress - PLAN OF CARE/RESULTS Progress/Plan/Lab Results: Vital Signs - 8 hr 07/29/19 04:35 Pulse Rate 93 H Respiratory Rate 19 Blood Pressure 154/106 O2 Sat by Pulse Oximetry 100 Laboratory Results - last 24 hr 07/29/19 07/29/19 04:57 04:57 WBC 28.39 H RBC 5.89 H Hgb 16.8 H Hct 53.1 H MCV 90.2 MCH 28.5 MCHC 31.6 L RDW Std Deviation 13.1 Plt Count 317 MPV 11.7 H Immature Gran % (Auto) 0.4 Neut % (Auto) 92.0 H Lymph % (Auto) 3.6 L [place] % (Auto) 3.3 Eos % (Auto) 0.6 Baso % (Auto) 0.1 Immature Gran # (Auto) 0.11 H Neut # (Auto) 26.11 H Lymph # (Auto) 1.02 L [place] # (Auto) 0.95 H Eos # (Auto) 0.16 Baso # (Auto) 0.04 Sodium 142 Potassium 3.2 L Chloride 97 L Carbon Dioxide 26 Anion Gap 19 BUN 14 Creatinine 1.0 H Estimated GFR/1.73 m2 59 BUN/Creatinine Ratio 14 Glucose 153 H Calculated Osmolality 287 Calcium 10.0 Total Bilirubin 0.27 AST 19 ALT 12 Alkaline Phosphatase 106 H Total Protein 9.0 H Albumin 4.5 Globulin 4.5 Albumin/Globulin Ratio 1.0 Orders Category Date Time Status Cardiac Monitoring DIRECTED Care 07/29/19 06:44 Active Notify MD of + Sepsis Screen NOW Care 07/29/19 06:44 Active Notify Physician As Ordered Care 07/29/19 06:44 Active CHEST-1 VIEW [RAD] Stat Exams 07/29/19 06:[address] ABD/PELVIS W/IV CONT ONLY [CT] Stat Exams 07/29/19 05:03 Completed BLOOD CULTURE [BLDCUL] Stat Lab 07/29/19 06:25 Ordered CBC WITH DIFF [HEME] Stat Lab 07/29/19 07:03 Ordered CBC WITH ELECTRONIC DIFF [HEME] Stat Lab 07/29/19 04:57 Results CK PROFILE [SP CHEM] Stat Lab 07/29/19 07:03 Ordered COMPREHENSIVE METABOLIC PANEL [CHEM] Stat Lab 07/29/19 04:57 Completed COMPREHENSIVE METABOLIC PANEL [CHEM] Stat Lab 07/29/19 07:03 Ordered LACTATE, PLASMA [CHEM] Lab 07/29/19 06:45 Uncollected LACTATE, PLASMA [CHEM] Lab 07/29/19 09:45 Uncollected LACTATE, PLASMA [CHEM] Lab 07/29/19 12:45 Uncollected LACTATE, PLASMA [CHEM] Stat Lab 07/29/19 06:25 Uncollected PROTIME WITH INR [COAG] Stat Lab 07/29/19 07:03 Ordered PTT [COAG] Stat Lab 07/29/19 07:03 Ordered TROPONIN T Stat Lab 07/29/19 07:03 Ordered URINALYSIS W/POSS RFLX CULT [URINALYSIS] Stat Lab 07/29/19 05:03 Uncollected Hydromorphone [Dilaudid] Med 07/29/19 05:03 Discontinued 0.5 mg IV NOW ONE Ondansetron [Zofran] Med 07/29/19 05:03 Discontinued 4 mg IV NOW ONE Oxygen Device Stat Oth 07/29/19 06:44 Active Result Diagrams: 07/29/19 04:57 07/29/19 04:57 - CONSULTS/PCP/HOSPITALIST Notification #1 *Consult/PCP/Hospitalist*: abi Time Discussed: : (admit to Dr Reed) Consult Disposition: Will see in ED - CHANGE OF SHIFT REPORT (ED Provider) 1 Report Given and Care Transferred to:: Dr Caldwell Time of Transfer: 07:11 Items Pending: Labs, CT/MRI Results Departure - Departure Date of Disposition Decision: 07/29/19 Time of Disposition Decision: 09: DIAGNOSIS: Partial small bowel obstruction Disposition: ADMITTED INPATIENT 09 Certified Medical Emergency: Emergent Condition: Fair Referrals and Follow-Ups: None,PCP [Primary Care Provider] - - Critical Care Note This patient required my direct & personal management of CC.: No Attestation - Physician/ MARINO Attestation Patient care was provided by Advanced Practice Provider:: No The physician spent face to face time with patient:: Yes Advanced Practice Provider documentation review:: Supervising physician onsite and consulted in the evaluation and care of this patient. The physician did have a face to face encounter with the patient.
[2019-07-29] MEDS ORDERED: NS 1,000 ML IV ONE ×3 (07:28→07:29)
--- NOTE | 2019-07-29 07:43 | Diag Imaging Result Doc PS360 ---
EXAM: CT ABD/PELVIS W/IV CONT ONLY INDICATION: possible SBO TECHNIQUE: This exam was performed using automated exposure control, adjustment of mA or kV according to patient size, and/or use of iterative reconstruction technique. COMPARISON: 06/02/2019 FINDINGS: There has been a prior cholecystectomy. The liver, spleen, pancreas, adrenal glands, kidneys, and urinary bladder are grossly unremarkable. There has been a prior hysterectomy. The appendix is not clearly identified. There is no secondary sign of appendicitis. There are multiple fluid-filled loops of small bowel throughout the abdomen with only mild distention. No clear transition point is appreciated. This is nonspecific but probably represents ileus, possibly related to enteritis. No definite bowel wall thickening is identified, however. There is nothing that would necessarily indicate obstruction. However, I suppose a low-grade obstruction is possible but less likely. No focal inflammatory changes or free abdominal gas is identified. IMPRESSION: Fluid-filled loops of small bowel throughout the abdomen with mild distention that are nonspecific. Consider ileus, possibly related to enteritis. Low-grade obstruction is less likely. Electronically signed by Dean Galarza 07/29/2019 7:41 AM
--- NOTE | 2019-07-29 07:46 | Diag Imaging Result Doc PS360 ---
EXAM: CHEST-1 VIEW INDICATION: possible sepsis TECHNIQUE: One view COMPARISON: 06/02/2019 FINDINGS: The lungs are grossly clear. There is no discrete pleural fluid collection or pneumothorax. The cardiomediastinal silhouette and central vasculature are grossly unremarkable. IMPRESSION: No evidence of acute pathology by plain radiograph. Electronically signed by Dean Galarza 07/29/2019 7:44 AM
[2019-07-29] MEDS ORDERED: ZOSYN 3.375 GM in NS 50 ML IV ONE (08:00)
[2019-07-29 08:08] LABS: INR 0.91; PROTIME 12.3 Seconds (11.0-16.0)
[2019-07-29 08:09] LABS: PTT 29.4 Seconds (22.3-41.8)
[2019-07-29 09:07] LABS: URINE SOURCE CLEAN CATCH
[2019-07-29 09:15] LABS: BILIRUBIN URINE NEGATIVE (NEGATIVE); BLOOD URINE NEGATIVE (NEGATIVE); COLOR YELLOW; GLUCOSE URINE NEGATIVE (NEGATIVE); KETONE URINE NEGATIVE (NEGATIVE); LEUKOCYTES URINE NEGATIVE (NEGATIVE); NITRITE URINE NEGATIVE (NEGATIVE); PROTEIN URINE 30 mg/dL (NEGATIVE); TURBIDITY URINE CLEAR (CLEAR); UROBILINOGEN URINE NORMAL (NORMAL)
[2019-07-29 09:16] LABS: UR EPITHELIAL CELLS <10 /HPF (<10); URINE BACTERIA NEGATIVE /HPF; URINE RBC <10 /HPF (<10); URINE WBC <10 /HPF (<10)
[2019-07-29 09:23] LABS: SP GRAVITY URINE < 1.005
[2019-07-29 10:15] LABS: BANDS 12 % (0-1); LYMPHS 4 % (21-51); MONO 4 % (1-9); SEGS 80 % (42-75)
--- NOTE | 2019-07-29 10:41 | HISTORY AND PHYSICAL ---
PRIMARY CARE PHYSICIAN: Listed as none. CHIEF COMPLAINT: Abdominal pain, nausea, vomiting and diarrhea that began last night and progressively worsened. HISTORY OF PRESENTING ILLNESS: This is a 48-year-old female who presents to [facility] ER after she began at work last night around 2 a.m. having left lower quadrant abdominal pain with around 15 episodes of vomiting and 20 episodes of diarrhea. States that she has had a history of a small bowel obstruction with her last one being 2 months ago. Workup showed a white blood cell count of 28.39. Her potassium was 3.2. Plasma lactate is normal at 1.2. Urinalysis was negative. We did a CT of the abdomen and pelvis that showed fluid-filled loops of small bowel throughout the abdomen with mild distention that are nonspecific. Consider an ileus, possibly related to enteritis. Low-grade obstruction is less likely. So she will be admitted for further evaluation and treatment. PAST MEDICAL HISTORY: Anxiety, depression, PTSD, some underlying kidney disease, and small bowel obstruction x2, the last one being 2 months ago. PAST SURGICAL HISTORY: Cholecystectomy, hysterectomy, and a facial surgery. FAMILY HISTORY: Reviewed and noncontributory. SOCIAL HISTORY: She currently lives alone. Smokes about a half a pack of cigarettes a day and has done so for 20+ years. Denies any alcohol or illicit drug use. ALLERGIES: She has no known drug allergies. HOME MEDICATIONS: She takes Adderall 30 mg p.o. t.i.d. and will be held, [place] 7.5 one p.o. b.i.d., and Valium 5 mg p.o. b.i.d. LABORATORY DATA: Showed a white blood cell count of 28.39, hemoglobin 16.8, hematocrit 53.1, platelets 317,000. PT and INR of 12.3 and 0.91. Sodium 142, potassium 3.2, chloride 97, CO2 26, BUN of 14, creatinine 1, glucose 153. Cardiac enzymes were negative. Plasma lactate of 1.2. Urinalysis was negative. Chest x-ray showed no evidence of acute pathology by plain radiograph. Abdomen and pelvic CT showed fluid-filled loops of small bowel throughout the abdomen with mild distention that are nonspecific. Consider ileus, possibly related to enteritis. Low-grade obstruction is less likely. REVIEW OF SYSTEMS: She denied any fever, chills, blurred vision, dizziness, chest pain, coughing, shortness of breath. She had left lower quadrant abdominal pain, nausea, vomiting, diarrhea, multiple episodes of each. Denied any burning or hurting with urination. PHYSICAL EXAMINATION: VITAL SIGNS: On arrival, she had a temperature of 97.5 degrees, pulse 93, blood pressure 154/106, saturating 100% on room air. GENERAL: This is a 48-year-old female who is lying in the bed and answers questions appropriately. HEENT: Normocephalic, atraumatic. Normal ENT inspection. Oropharynx and nares are clear. EYES: Pupils are equal, round, reactive to light and accommodation. Extraocular movements are intact. NECK: Normal inspection. Normal range of motion. LUNGS: Clear to auscultation bilaterally with equal lung expansion and chest wall movement. HEART: Regular rate and rhythm. No murmurs, rubs, or gallops. ABDOMEN: Soft. There is tenderness to palpation to the left lower quadrant. Bowel sounds were hypoactive. MUSCULOSKELETAL: She had 5/5 strength x4 extremities. NEUROLOGICAL: The cranial nerves 2-12 appear grossly intact. ASSESSMENT: 1. Nausea, vomiting, and diarrhea, intractable. 2. An ileus with possible enteritis. 3. Leukocytosis. 4. Hypokalemia. 5. Tobacco abuse. PLAN: She will be admitted to the medical unit and placed on telemetry. We will place her on a clear liquid diet. Normal saline at 125 mL an hour. We will supplement her potassium with 20 mEq IV q.4 hours x2 bags. Placed on Levaquin 500 mg IV every 24. Continue home medications as previously identified. Morphine 2 mg IV q.3 hours p.r.n., Zofran 4 mg IV q.4 hours p.r.n. Check stool Studies for WBC, CDiff, Culture and Shiga Toxin. Recheck a CBC and BMP in the a.m. Further orders after seen by attending. Dictated by CHIKA Bird for Jose Reed MD cc: CHIKA Bird patient with nausea/vomiting/diarrhea. abdominal exam pretty benign with little to no tenderness, minimal distention. most consistent with viral enteritis but can't entirely rule out ileus based on imaging, bowel sounds are a little hypoactive but definitely present. also with heavy nsaid use but no signs or symptoms of bleeding and hemoglobin is essentially normal. will treat supportively and monitor. check cdif given diarrhea. MTDD
[2019-07-29] MEDS: MORPHINE IV PRN (11:57)
[2019-07-29] MEDS: NS 1,000 ML IV SCH ×2 (12:19→20:38)
[2019-07-29] MEDS: LEVAQUIN 500 MG/D5W 500 MG/100 ML IVPB IV SCH (12:19)
[2019-07-29] MEDS: POTASSIUM CHLORIDE 20 MEQ/SWI 20 MEQ/100 ML IVPB IV SCH ×2 (13:57→18:49)
[2019-07-29] MEDS ORDERED: PNEUMOVAX 23 IM ONE (14:00)
[2019-07-29] MEDS: VALIUM PO SCH ×2 (14:39→20:38)
[2019-07-29] MEDS: PROTONIX PO SCH (18:53)
[2019-07-29] MEDS: NORCO-7.5 PO SCH (20:38)
[2019-07-30] MEDS: ZOFRAN IV PRN ×3 (02:52→22:02)
[2019-07-30] MEDS: PROTONIX PO SCH (06:18)
[2019-07-30 06:51] LABS: BASO# 0.02 X1000 (0.0-0.2); BASO% 0.2 % (0.0-0.8); EOS# 0.28 X1000 (0.0-0.7); EOS% 3.4 % (0.0-10.0); HEMATOCRIT 41.8 % (37.0-47.0); HEMOGLOBIN 13.1 g/dL (12.0-16.0); LYMPH# 2.85 X1000 (1.2-3.4); LYMPH% 34.5 % (20.5-51.1); MCHC 31.3 g/dL (33-37); MCV 92.5 FL (81-99); MONO# 0.49 X1000 (0.11-0.59); MONO% 5.9 % (1.7-9.3); MPV 11.4 FL (7.4-10.4); NEUT# 4.61 X1000 (1.4-6.5); PLT 214 X1000 (130-400); RBC 4.52 XMIL (4.2-5.4); RDW 13.2 % (11.5-14.5); WBC 8.25 X1000 (4.8-10.8)
[2019-07-30 07:27] LABS: AGAP 11; BUN 6 mg/dL (8-22); CALCIUM 7.7 mg/dL (8.8-10.2); CHLORIDE 106 mmol/L (98-107); COSMO 278; CREATININE 0.6 mg/dL (0.5-0.9); ESTIMATED GFR > 60; GLUCOSE 84 mg/dL (70-104); POTASSIUM 3.2 mmol/L (3.5-5.1); SODIUM 141 mmol/L (136-145); TCO2 24 mmol/L (25-35)
[2019-07-30 08:06] LABS: HEMOGLOBIN A1C 5.3 % (4.8-6.0)
[2019-07-30] MEDS: VALIUM PO SCH ×2 (08:46→20:41)
[2019-07-30] MEDS: NORCO-7.5 PO SCH ×2 (08:46→20:41)
[2019-07-30] MEDS: LEVAQUIN 500 MG/D5W 500 MG/100 ML IVPB IV SCH ×2 (08:47→12:56)
[2019-07-30] MEDS ORDERED: POTASSIUM CHLORIDE 60 MEQ in NS 500 ML IV ONE (09:30)
[2019-07-30] MEDS: NS 1,000 ML IV SCH ×3 (15:14→19:41)
[2019-07-30] MEDS: MORPHINE IV PRN (15:22)
[2019-07-30] MEDS ORDERED: G.I. COCKTAIL PO PRN (15:24)
--- NOTE | 2019-07-30 18:27 | PROGRESS NOTE ---
DATE: 07/30/2019 INTERVAL HISTORY: The patient still with some nausea, but no vomiting or diarrhea. Does report improvement in nausea with Zofran. Reports improvement in appetite. Still some epigastric discomfort which is somewhat improved since starting PPI. No hemoptysis, coffee-grounds emesis, or other sign or symptom of bleeding. REVIEW OF SYSTEMS: Twelve point review of systems negative except as per interval history. LABS: WBC 8.25, hemoglobin 13.1, hematocrit 41.8, platelets 214,000. Sodium 141, potassium 3.2, BUN 6, creatinine 0.6, glucose 84. Urinalysis unremarkable. VITALS: T-max 98.2 degrees, pulse 79, respirations 14, blood pressure 152/77, O2 saturation 98% on room air. PHYSICAL EXAMINATION: General: No acute distress. Vitals: As above. HEENT: Normocephalic, atraumatic. Mucous membranes no longer dry. Cardiovascular: Regular rate and rhythm. No murmurs noted. Pulmonary: Clear to auscultation bilaterally. No wheezing, rales, or rhonchi. Abdomen: Soft. Minimal epigastric tenderness without rebound or guarding. Bowel sounds positive. Extremities: Peripheral pulses intact. No clubbing, cyanosis, or edema. Neurologic: Cranial nerves intact. No focal deficits. Psychiatric: Normal mood and affect. Awake, alert, oriented x3. Skin: No new rashes or lesions identified. ASSESSMENT AND PLAN: 1. Nausea, vomiting, and diarrhea, suspect viral enteritis, also possible ileus on initial imaging. The patient has no further diarrhea. Still some nausea, but no further vomiting. Seems to be tolerating clear liquids pretty well. The patient reports still some epigastric discomfort, but improving appetite. We will go ahead and increase her to full liquids. Continue fluids. Recheck abdominal x-ray in the morning. If the patient does well overnight and x-ray looks okay, then may be able to advance diet to full in the morning and possibly discharge later tomorrow. 2. Epigastric pain, likely gastritis versus early peptic ulcer disease. Patient with heavy nonsteroidal anti-inflammatory drug use. Some epigastric pain. No signs or symptoms of bleeding, but suspected at least some gastritis, possibly even early peptic ulcer disease. We will continue proton pump inhibitor and we will also give a little better gastrointestinal cocktail to see if that provides her some relief. The patient counseled to avoid nonsteroidal anti-inflammatory drugs for the near future and use caution with them in the future. We will plan on discharging on Protonix. 3. Dehydration, improving with IV fluids. Continue hydration. 4. Anxiety continue home medication. 5. Chronic pain continue home medication. As she appears to be tolerating p.o., we will wean off of intravenous narcotics. 6. Attention deficit disorder. Holding home medicines for now. 7. Tobacco and THC use. The patient has been counseled on cessation.
[2019-07-31] MEDS: MORPHINE IV PRN ×3 (01:28→16:35)
[2019-07-31] MEDS: ZOFRAN IV PRN ×2 (01:29→09:57)
[2019-07-31] MEDS: NS 1,000 ML IV SCH (06:35)
[2019-07-31] MEDS: PROTONIX PO SCH (06:37)
[2019-07-31 06:54] LABS: BASO# 0.02 X1000 (0.0-0.2); BASO% 0.3 % (0.0-0.8); EOS% 3.1 % (0.0-10.0); HEMATOCRIT 39.6 % (37.0-47.0); HEMOGLOBIN 12.5 g/dL (12.0-16.0); LYMPH# 3.25 X1000 (1.2-3.4); LYMPH% 50.2 % (20.5-51.1); MCH 29.1 PG (27-31); MCHC 31.6 g/dL (33-37); MCV 92.1 FL (81-99); MONO# 0.51 X1000 (0.11-0.59); MONO% 7.9 % (1.7-9.3); MPV 11.4 FL (7.4-10.4); NEUT% 38.5 % (42.2-75.2); PLT 223 X1000 (130-400); RDW 12.9 % (11.5-14.5); WBC 6.48 X1000 (4.8-10.8)
[2019-07-31 07:30] LABS: AGAP 11; BUN 2 mg/dL (8-22); CHLORIDE 108 mmol/L (98-107); COSMO 280; CREATININE 0.6 mg/dL (0.5-0.9); ESTIMATED GFR > 60; GLUCOSE 83 mg/dL (70-104); POTASSIUM 3.4 mmol/L (3.5-5.1); SODIUM 143 mmol/L (136-145); TCO2 24 mmol/L (25-35)
[2019-07-31] MEDS: NORCO-7.5 PO SCH ×2 (08:33→21:44)
[2019-07-31] MEDS: VALIUM PO SCH ×2 (08:34→21:44)
--- NOTE | 2019-07-31 09:13 | Diag Imaging Result Doc PS360 ---
KUB ABDOMEN - 07/31/2019 INDICATION: ileus COMPARISON: 06/05/2019 FINDINGS: There is a nonobstructive bowel gas pattern. No free air or abdominal calcifications. Stable cholecystectomy clips. IMPRESSION: No acute disease. Electronically signed by Carrington Casper 07/31/2019 9:11 AM
[2019-07-31] MEDS: LEVAQUIN 500 MG/D5W 500 MG/100 ML IVPB IV SCH (11:26)
[2019-07-31] MEDS ORDERED: SODIUM CHLORIDE 0.9% INJ SCH (12:15)
[2019-07-31] MEDS: CARAFATE PO SCH ×2 (13:01→18:38)
[2019-07-31 14:17] LABS: HEMATOCRIT 40.4 % (37.0-47.0); HEMOGLOBIN 12.7 g/dL (12.0-16.0)
[2019-07-31] MEDS ORDERED: MILK OF MAGNESIA PO ONE (16:52)
--- NOTE | 2019-07-31 17:17 | PROGRESS NOTE ---
DATE: 07/31/2019 INTERVAL HISTORY: Patient did well with liquid diet yesterday. Some modest improvement in upper abdominal pain, although that still remains. She had not previously had any signs or symptoms of bleeding aside from slight downtrend in hemoglobin and hematocrit from admission, but this morning had large melenic bowel movement which she describes as pitch black and tarry. Concern is for possible bleeding gastritis or peptic ulcer. Already on Protonix b.i.d. No other acute events overnight. REVIEW OF SYSTEMS: Twelve point review of systems negative except as per interval history. LABS: WBC 6.4, hemoglobin 12.7, hematocrit 40.4, platelets 223,000. Sodium 143, potassium 3.4, bicarb 24, BUN 2, creatinine 0.6. VITAL SIGNS: T-max 98.2 degrees, pulse 68, respirations 16, blood pressure 117/64, O2 saturation 100% on room air. PHYSICAL EXAMINATION: General: No acute distress. Vital signs: As above. HEENT: Normocephalic, atraumatic. Moist mucous membranes. Cardiovascular: Regular rate and rhythm. No murmurs, rubs, or gallops. Pulmonary: Clear to auscultation bilaterally. No wheezing, rales, or rhonchi. Abdomen: Soft. Minimal epigastric tenderness, improved from previous. Bowel sounds positive. Extremities: Peripheral pulses intact. No clubbing or cyanosis. Neurologic: Cranial nerves grossly intact. No focal deficits identified. Psychiatric: Normal mood and affect. Awake, alert, oriented x3. Skin: No new rashes or lesions identified. ASSESSMENT AND PLAN: 1. Likely viral enteritis and possible ileus. This has essentially resolved. No further vomiting or diarrhea. Possibly ileus resolved on most recent abdominal x-ray. Still with upper abdominal pain, likely related to peptic ulcer disease as below. 2. Possible upper gastrointestinal bleed and peptic ulcer disease. Patient with heavy nonsteroidal anti-inflammatory drug use prior to admission. Ongoing upper epigastric pain. Initially hoped to treat conservatively without need for endoscopy given lack of signs or symptoms of bleeding, but patient this morning with melena and blood counts trending down slightly over the course of the hospitalization, although still suspect her initial drop is largely because of dehydration on admission. Patient on PPI b.i.d. and getting GI to see her to see if she may need endoscopy. 3. Dehydration. Essentially resolved with IV fluids. 4. Chronic pain. Continuing home [place] and morphine available p.r.n. as we are not giving patient the high-dose ibuprofen she usually takes at home. 5. Anxiety. Continue home Valium. 6. Attention deficit disorder. Holding home Adderall. 7. Tobacco and THC abuse. Patient has been counseled on cessation. 8. Nonsteroidal anti-inflammatory drug abuse. The patient has been counseled on avoidance of long-term, high dose, daily NSAIDs as above. The patient has been counseled on avoiding NSAIDs entirely for the near future.
[2019-07-31] MEDS: MIRALAX PO SCH ×2 (18:39→21:45)
--- NOTE | 2019-07-31 18:48 | GASTROENTEROLOGY CONSULTATION ---
DATE: 07/31/2019 REQUESTING PHYSICIAN: Dr. Reed. PRIMARY CARE DOCTOR: Dr. Link in [place]. REASON FOR CONSULTATION: Nausea, vomiting, diarrhea and dark stools. HISTORY OF PRESENT ILLNESS: Ms. Stovall is a 48-year-old female who was admitted on 07/29/2019 for symptoms of abdominal pain in the left upper quadrant, left lower quadrant along with intractable nausea, vomiting, and diarrhea. She had been recently discharged from [facility] where she was diagnosed with partial small obstruction, and she was treated conservatively and was discharged. At that time, she was seen by Dr. Duran. At that time, the small bowel follow- through was done, and it was normal. The patient has history of chronic back pain for which she takes narcotics. She also takes ibuprofen once or twice daily for many months for chronic back pain. She does complain of intermittent constipation for the last few days. She also noted that her stool had turned darker this morning. She was told that she could have an ulcer because of use of NSAIDs and was counseled about cessation of NSAIDs. She denies having any EGD or colonoscopy in the past. While being in the hospital, she has been treated with pain control with morphine and Protonix and IV antibiotics and now she is feeling better. When I saw the patient, she was requesting her to be discharged home to spend time with her family for Miguel. According to her, she is feeling better. She denied any vomiting today. Her hematocrit has been stable and normal on repeat check. PAST MEDICAL HISTORY: 1. Anxiety. 2. Depression. 3. PTSD. 4. Underlying kidney disease. 5. Small bowel obstruction x2 partial. 6. Chronic back pain. 7. Use of NSAIDs. PAST SURGICAL HISTORY: Cholecystectomy, hysterectomy, facial surgery. FAMILY HISTORY: Noncontributory. SOCIAL HISTORY: She lives alone. She smokes half a pack of cigarettes a day. She has done that for more than 20 years. She denies any history of alcohol or illicit drug abuse. 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 ALLERGIES: To latex and natural rubber. MEDICATIONS AT HOME: Include Adderall 30 mg p.o. t.i.d., [place] 7.5 mg p.o. b.i.d., and Valium 5 mg p.o. b.i.d. MEDICATIONS IN THE HOSPITAL: Include milk of magnesia, Pneumovax, Valium, [place] 5, [place] 7.5 b.i.d., Levaquin 500 mg IV daily, GI cocktail and morphine 2 mg IV q.6 hours, Zofran 4 mg IV q.4 hours, Protonix 40 mg IV b.i.d., MiraLAX 17 g p.o. b.i.d., Carafate 1 g 6 hours, potassium chloride given IV once. She is on a regular diet per the primary team. REVIEW OF SYSTEMS: Denies any current fevers, rigors, chills, chest pain, shortness of breath. Denies any vomiting, blood or passing blood in the stools, particularly no dark stools today, 1 episode. She does have chronic back pain. She takes NSAIDs and [place]. She does have history of anxiety and depression. PHYSICAL EXAMINATION: Vital signs: Temperature 97.9 degrees, pulse of 60, respiratory rate 16, blood pressure 162/90, saturating 100% on room air. Body weight of 178 pounds, BMI 32.6 kg. General: lying in bed, currently in no acute distress. HEENT: No pallor, no icterus. Pupils equal, reactive to light. Neck: Supple. Abdomen: Discomfort in the left upper quadrant, left lower quadrant, no rebound or guarding. Mild protuberant abdomen. Extremities: No cyanosis, clubbing or edema. Neurologic: She is alert, awake, oriented x3. LABORATORY DATA: Hemoglobin and hematocrit is 12.7 and 40.4, white count of 6.4, platelet count of 223,000, MCV of 92.1. Sodium 140, potassium 3.4, chloride 108, bicarb 24, anion gap 11, BUN of 2, creatinine 0.6, glucose of 83, calcium is 8, AST 19, ALT 12, alkaline phosphatase 106, total protein is 9, albumin of 4.5. This is on admission when she was dehydrated, and urinalysis showed a small amount of protein otherwise negative. Stool studies: Stool for white cells was none and stool culture no enteric pathogens. Stool for C difficile toxin was negative, and her blood culture x2 negative at 48 hours on 07/27/2019. IMAGING: CT scan of the abdomen and pelvis on 07/29/2019 showed evidence of fluid filled loops of small bowel throughout the abdomen with mild distention that are nonspecific, consider ileus possibly related to enteritis. Low-grade obstruction is less likely. Chest x- ray was done on admission showed no evidence of any acute pathology. She had abdominal x-ray done today which showed evidence of no acute disease, nonobstructive bowel gas pattern, stable cholecystectomy clips. Prior to that, on last admission, she had a small bowel x-ray done on 06/04/2019, which showed normal small bowel series. IMPRESSION AND PLAN: 1. Nausea, vomiting, diarrhea likely secondary to possible viral Gastroenteritis. She will continue on supportive treatment. She will continue on IV antiemetics. This has improved. 2. Non-steroidal antiinflammatory drug abuse. Patient counseled to quit using ibuprofen completely for now, and she will continue PPIs b.i.d. for now. On discharge, she can be on Prilosec OTC twice daily for a total of 6 weeks. 3. Constipation. We will give her MiraLAX twice daily as her last bowel movement was small, and she feels constipated and bloated and she takes narcotics, which can also make her constipated. 4. Chronic back pain for which she is on [place] at home and also receiving morphine and [place] here, which can make her constipated. Need to reduce the narcotics to as low as possible. 5. Anxiety. She will continue home Valium. 6. Attention deficit disorder. She is on home dose of Adderall. 7. Tobacco abuse. Patient counseled to quit smoking. 8. Marijuana abuse. Patient counseled on marijuana abuse as well. Unclear if cannabis hyperemesis syndrome is a possibility. 9. Dehydration. This is now resolved. She was given IV fluids on admission. 10. History of cholecystectomy and hysterectomy in the past, which can sometimes cause scar tissue and cause partial small obstruction, but her latest x-rays were showing nonobstructive bowel gas pattern. DISPOSITION: The patient is requesting to be discharged today to spend time home as she is feeling better. I have called Dr. Reed, discussed that with him. If patient gets discharged, we will see the patient outpatient in 2 weeks after discharge. She will continue on Prilosec OTC twice daily and take MiraLAX twice daily. She will avoid any NSAIDs, and she will return to the hospital if there are any new symptoms or symptoms return. If she stays as inpatient, we will possibly do endoscopy based on her symptoms and clinical course. The above plans were discussed with the patient and the nursing staff and Dr. Reed and all questions answered. Please call us with any further questions. cc: MD Jose Rose MD MTDD
[2019-07-31] MEDS: PROTONIX IV SCH (21:44)
[2019-08-01] MEDS: CARAFATE PO SCH ×2 (02:34→06:58)
[2019-08-01] MEDS: MORPHINE IV PRN ×2 (02:34→10:48)
[2019-08-01] MEDS: ZOFRAN IV PRN (02:35)
[2019-08-01 07:13] LABS: BASO# 0.03 X1000 (0.0-0.2); BASO% 0.4 % (0.0-0.8); EOS# 0.21 X1000 (0.0-0.7); EOS% 3.1 % (0.0-10.0); HEMATOCRIT 41.1 % (37.0-47.0); LYMPH# 2.66 X1000 (1.2-3.4); LYMPH% 39.3 % (20.5-51.1); MCHC 31.6 g/dL (33-37); MCV 91.5 FL (81-99); MONO# 0.44 X1000 (0.11-0.59); MONO% 6.5 % (1.7-9.3); MPV 11.5 FL (7.4-10.4); NEUT# 3.42 X1000 (1.4-6.5); NEUT% 50.7 % (42.2-75.2); PLT 228 X1000 (130-400); RBC 4.49 XMIL (4.2-5.4); RDW 12.8 % (11.5-14.5); WBC 6.76 X1000 (4.8-10.8)
[2019-08-01 07:49] LABS: AGAP 11; BUN 8 mg/dL (8-22); CALCIUM 8.2 mg/dL (8.8-10.2); CHLORIDE 104 mmol/L (98-107); COSMO 278; CREATININE 0.7 mg/dL (0.5-0.9); ESTIMATED GFR > 60; GLUCOSE 96 mg/dL (70-104); POTASSIUM 3.5 mmol/L (3.5-5.1); SODIUM 140 mmol/L (136-145); TCO2 25 mmol/L (25-35)
[2019-08-01] MEDS: MIRALAX PO SCH (08:58)
[2019-08-01] MEDS: NORCO-7.5 PO SCH (08:58)
[2019-08-01] MEDS: VALIUM PO SCH (08:59)
[2019-08-01] MEDS: PROTONIX IV SCH (08:59)
[2019-08-01] MEDS: LEVAQUIN 500 MG/D5W 500 MG/100 ML IVPB IV SCH (10:46)
[2019-08-01 11:47] VITALS: BP 123/79
--- NOTE | 2019-08-01 14:52 | DISCHARGE SUMMARY ---
ADMISSION DATE: 07/29/2019 DISCHARGE DATE: 08/01/2019 DIAGNOSES: 1. Nausea, vomiting, and diarrhea, has resolved, likely viral enteritis. 2. Possible upper gastrointestinal bleed and peptic ulcer disease due to patient's heavy non steroidal anti-inflammatory drug use prior to admission. 3. Dehydration, resolved. 4. Chronic pain on [place] and morphine prior to hospitalization. 5. Anxiety. 6. Attention deficit disorder. 7. Tobacco and THC abuse. 8. Nonsteroidal anti-inflammatory drug abuse. CONSULTANTS: Dr. Jose A Ambriz, gastroenterology. DIAGNOSTICS: 1. CT of the abdomen and pelvis revealed fluid-filled loops of small bowel throughout the abdomen with mild distention that are nonspecific. Consider ileus, possibly related to enteritis, low- grade obstruction is less likely. 2. Chest x-ray revealed no evidence of acute pathology by plain radiograph. 3. Abdominal x-ray revealed no acute disease. HOSPITAL COURSE: Ms Stovall presented to the emergency room with abdominal pain, nausea, vomiting, and diarrhea. She was found have a white count of 28 with a potassium of 3.2. CT scan revealed nonspecific fluid-filled loops of small bowel with and to consider ileus, possibly real related to enteritis. She had no further diarrhea after admission. She reported 15 episodes of vomiting with 20 episodes of diarrhea prior to coming to the emergency room. She had no further diarrhea and she reported no vomiting or diarrhea after admission. She was rehydrated. She did receive antibiotic coverage of Levaquin. We did trend her electrolytes and replaced as appropriate. Stool for E coli and shigella was negative. Stool culture revealed no enteric pathogen. C difficile toxin returned negative. Diet was advanced to a regular diet which she tolerated without difficulty. On the morning of the , she had reported stools being darker than normal. Gastroenterology was consulted, although the patient requested to be discharged home to spend Miguel with her family. She refused any testing at this time. The patient does have a history of taking a large amounts of NSAIDs daily. History of taking ibuprofen multiple times daily for the past 4 to 6 months for chronic back pain. It was discussed with her that this melena could be the result of an ulcer from the NSAID use. She was instructed to stop using NSAIDs to which she did voice understanding. We trended electrolytes throughout the hospitalization and treated as appropriate. DISCHARGE VITAL SIGNS: Blood pressure is 123/79 with a heart rate of 85, respirations are 20, temperature is 98.2 degrees oral with room air saturations 97 to 99%. DISCHARGE PHYSICAL EXAMINATION: Cardiovascular: Regular rate and rhythm. S1 and S2 appreciated. Calves are nontender bilateral. Pulmonary: Breath sounds are clear with no increased work of breathing noted. Chest rises and falls symmetric respiration. Chest wall is nontender to palpation. Gastrointestinal: Abdomen is soft, nontender, nondistended with bowel sounds in all 4 quadrants. Neurologic: She is alert oriented x3. Skin is warm and dry. DISCHARGE MEDICATIONS: 1. [place] 7.5 one p.o. b.i.d. 2. Tizanidine 4 mg p.o. b.i.d. 3. Carafate 1 g p.o. q.6 hours. 4. MiraLAX 17 g p.o. b.i.d. 5. Protonix 40 mg p.o. daily. 6. Valium 5 mg p.o. b.i.d. 7. Trintellix X 20 mg p.o. at bedtime p.r.n. FOLLOWUP: 1. Dr. Jose A Ambriz. She needs to call to schedule an appointment in 2 weeks after discharge as discussed with the patient per Dr. Ambriz. She is to call his office on Tuesday to schedule this. 2. She has been instructed to call to be seen sooner or return to the ER for any syncope, dizziness, chest pain, palpitations, recurring nausea, vomiting, diarrhea, constipation, any black or bloody vomitus or stools, any hematuria, dysuria, frequency, urgency or for any questions or concerns that she may have. DISPOSITION: She is being discharged home in stable condition with family members. TIME SPENT: This is a greater than 30 minute discharge. Dictated by CHIKA Rendon for Jose Reed MD cc: CHIKA Rendon Patient's nausea and vomiting resolved for several days. blood counts now stabilized. considered EGD while in the hospital but patient elected to defer that. suspect PUD due to heavy nsaid use and will keep her on PPI for the forseeable future. patient strongly advised to minimize or preferably eliminate nsaid use for the next few weeks and to exercise caution with them in the future. MTDD
== END 2019-08-01 12:24 | disposition home or self-care (01) | DRG 392 ==
LOC: ED 04:31 → EDIPHOLD 10:03 → 4N 11:49
PROVIDERS: ATTEND Internal Medicine

== ENCOUNTER 2019-11-23 04:40 | Inpatient (IN) ==
[2019-11-23] MEDS ORDERED: TORADOL IV ONE (05:02)
[2019-11-23] MEDS ORDERED: ZOFRAN IV ONE (05:02)
[2019-11-23] MEDS ORDERED: ATIVAN IV ONE (05:02)
--- NOTE | 2019-11-23 05:09 | PROVIDER DOCUMENTATION ---
HPI-Abdominal Pain/GI Problem - General Chief Complaint: Abdominal Pain Stated Complaint: NVD Time Seen by Provider: 11/23/19 05:02 Source: patient Allergies/Adverse Reactions: Patient Allergies Allergy/AdvReac Type Severity Reaction Status Date / Time Latex, Natural Rubber Allergy RASH Verified 11/23/19 06:29 Home Medications: Home Medication List Medication Instructions Recorded Confirmed Last Taken Type NK [No Home Medications] 11/23/19 11/23/19 Unknown History - History of Present Illness-ABD Nature of Presenting Problems: Presents to the with complaints of abdominal pain that is mostly in the left flank or LLQ. She states that this started two says ago. She endorses nausea and vomiting and diarrhea. She has been passing gas when she has a BM. She denies any dysuria or hematuria. She states she is worried she has a kidney stone or bowel obstruction. She states that she tried taking some benadryl but didnt have anything for pain at home and would not take ibupofen because she heard it caused COVID. She denies any fevers but does endorses chills. She has a history of anxiety and depression but she has been off her medications for a few months because Dr Link wouldnt write for them anymore Review of Systems - Adult - REVIEW OF SYSTEMS - ADULT Constitutional: reports: see HPI Eyes: reports: no symptoms reported Ears, Nose, Mouth & Throat: reports: no symptoms reported Cardiovascular: reports: no symptoms reported Respiratory: reports: no symptoms reported Gastrointestinal: reports: see HPI, abdominal pain, diarrhea, nausea, vomiting. denies: constipation Genitourinary: reports: see HPI, flank pain. denies: dysuria, hematuria Musculoskeletal: reports: see HPI, back pain Integumentary: reports: no symptoms reported Neurological: reports: no symptoms reported Psychiatric: reports: see HPI, anxiety Endocrine: reports: no symptoms reported Hematologic/Lymphatic: reports: no symptoms reported Allergic/Immunologic: reports: no symptoms reported All Other Systems: Reviewed and Negative Past History - Adult - PAST MEDICAL HISTORY-ADULT Review of Records: reports: Old Records Reviewed, Social history reviewed & non- contributory. Major Childhood Illnesses: reports: denies history Cardiovascular: reports: denies history Respiratory: reports: denies history Gastrointestinal: reports: denies history Obstetrical/Gynecological: reports: denies history Genitourinary: reports: denies history Musculoskeletal: reports: chronic pain (back pain) Neurological: reports: denies history Psychiatric: reports: anxiety, depression, ptsd Endocrine/Immune: reports: denies history Other Conditions: reports: denies history - PRIOR SURGERIES/PROCEDURES Surgical/Procedure History: reports: cholecystectomy, hysterectomy, other (facial surgery) - PRIOR HOSPITALIZATIONS Prior Hospitalizations: reports: none - IMMUNIZATION STATUS Childhood Immunizations: UTD Flu Vaccine: See Nurse Assessment - FAMILY HISTORY Family History: reviewed, not pertinent Physical Exam-General - CONSTITUTIONAL General Appearance: alert, mild distress (uncomfortable appearing), obese, anxious - EYES Eyes: PERRL/EOMI - HEAD, EARS, NOSE, MOUTH & THROAT HENMT: normocephalic/atraumatic - NECK Neck: supple, normal inspection - RESPIRATORY Respiratory: chest non-tender, lungs clear, normal breath sounds, no respiratory distress, no accessory muscle use - CARDIOVASCULAR Cardiovascular: normal peripheral pulses, tachycardia - GASTROINTESTINAL (ABDOMEN) Abdominal Exam: soft, abnormal bowel sounds (diminished), distended, tenderness (left flank, left side of abdomen) - MUSCULOSKELETAL Back Exam: normal inspection Extremity: normal gait, normal inspection - SKIN Integumentary: normal color, warm/dry - NEUROLOGIC Neurologic: grossly normal - PSYCHIATRIC Psych/Mental Status: oriented x 3 Progress - PLAN OF CARE/RESULTS Progress/Plan/Lab Results: Vital Signs - 8 hr 11/23/19 04:49 Temperature 97.7 F Pulse Rate 95 H Respiratory Rate 20 Blood Pressure 166/105 O2 Sat by Pulse Oximetry 99 Orders Category Date Time Status CT ABD/PELVIS W/IV CONT ONLY [CT] Stat Exams 11/23/19 05:02 Ordered CBC WITH ELECTRONIC DIFF [HEME] Stat Lab 11/23/19 05:02 Uncollected COMPREHENSIVE METABOLIC PANEL [CHEM] Stat Lab 11/23/19 05:02 Uncollected LIPASE [CHEM] Stat Lab 11/23/19 05:02 Uncollected URINALYSIS W/POSS RFLX CULT [URINALYSIS] Stat Lab 11/23/19 05:02 Uncollected URINE DRUG SCREEN Stat Lab 11/23/19 05:02 Uncollected Ketorolac [Toradol] Med 11/23/19 05:02 Once 30 mg IV NOW ONE Lorazepam [Ativan] Med 11/23/19 05:02 Once 2 mg IV NOW ONE Ondansetron [Zofran] Med 11/23/19 05:02 Once 4 mg IV NOW ONE Result Diagrams: 11/23/19 05:00 11/23/19 05:00 - REASSESSMENT Reassessment #1 Time Reassessed: 07:39 Status: improving (Seen and examined by me. Case discussed with Dr. Maldonado at shift change. Patient has partial SBO and possible bilateral PNE per radiology. Has been given IVF, IV morphine/zofran for pain, NGT for partial SBO, IV rocephin/zithromax for CAP. 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 Patient needs admission for SBO and B/L PNA. Signed out to Dominique pending admission acceptance to hosp. SPoke to Dr Rogers prior to Dr Fox's arrival and he recommended NGT) Departure - Departure Date of Disposition Decision: 11/23/19 Time of Disposition Decision: 06:31 DIAGNOSIS: Partial small bowel obstruction Bilateral pneumonia Qualifiers: Pneumonia type: due to unspecified organism Lung location: lower lobe of lung Qualified Code(s): J18.9 - Pneumonia, unspecified organism Disposition: ADMITTED INPATIENT 09 Certified Medical Emergency: Emergent Condition: Stable - Critical Care Note This patient required my direct & personal management of CC.: No Attestation - Physician/ MARINO Attestation Patient care was provided by Advanced Practice Provider:: No The physician spent face to face time with patient:: Yes Advanced Practice Provider documentation review:: Supervising physician onsite and consulted in the evaluation and care of this patient. The physician did have a face to face encounter with the patient.
[2019-11-23 06:14] LABS: BASO# 0.03 X1000 (0.0-0.2); BASO% 0.3 % (0.0-0.8); EOS# 0.05 X1000 (0.0-0.7); EOS% 0.6 % (0.0-10.0); HEMATOCRIT 56.4 % (37.0-47.0); HEMOGLOBIN 17.7 g/dL (12.0-16.0); LYMPH# 1.21 X1000 (1.2-3.4); LYMPH% 13.9 % (20.5-51.1); MCH 28.5 PG (27-31); MCHC 31.4 g/dL (33-37); MCV 90.7 FL (81-99); MONO# 1.13 X1000 (0.11-0.59); MPV 10.8 FL (7.4-10.4); NEUT# 6.27 X1000 (1.4-6.5); NEUT% 72.2 % (42.2-75.2); PLT 350 X1000 (130-400); RBC 6.22 XMIL (4.2-5.4); RDW 14.4 % (11.5-14.5); WBC 8.69 X1000 (4.8-10.8)
[2019-11-23] MEDS ORDERED: MORPHINE IV ONE (06:28)
[2019-11-23] MEDS ORDERED: NS 1,000 ML IV ONE ×3 (06:29)
[2019-11-23 06:36] LABS: ALB/GLOB RATIO 0.8; ALBUMIN 4.3 g/dL (3.5-5.0); CALCIUM 9.9 mg/dL (8.8-10.2); POTASSIUM 4.3 mmol/L (3.5-5.1); TOTAL BILIRUBIN 0.55 mg/dL (0.20-1.00); TOTAL PROTEIN 9.4 g/dL (6.3-8.3)
--- NOTE | 2019-11-23 07:04 | Diag Imaging Result Doc PS360 ---
CHEST-PORTABLE - 11/23/2019 INDICATION: B/L PNA COMPARISON: 07/29/2019 FINDINGS: Lung volumes are severely low. The lungs are clear. Heart size is normal. No pneumothorax or pleural effusion. IMPRESSION: Severely low lung volumes. Electronically signed by Carrington Casper 11/23/2019 7:01 AM
--- NOTE | 2019-11-23 07:15 | Diag Imaging Result Doc PS360 ---
EXAM: CT ABD/PELVIS W/IV CONT ONLY 11/23/2019 HISTORY: distended abdomen, left LLQ/flank pain TECHNIQUE: This exam was performed using automated exposure control, adjustment of mA or kV according to patient size, and/or use of iterative reconstruction technique. COMMENT: There are patchy opacities in the lung bases which were not present on the previous study of 08/28/2019. This may be due to differences in inspiration. There is distention of the stomach with gas and liquid contents. There is some fluid in the distal esophagus. This was not the case at the time the previous study. The aorta is not distended and the mesenteric and renal arteries are patent. The kidneys are without evidence of hydronephrosis or stones and there are no masses. There has been cholecystectomy. The liver spleen and adrenal glands are within normal limits. The proximal small bowel is markedly distended with air-fluid levels. There is some fluid in the colon. The distal small bowel is not distended. There is no evidence of appendicitis. There is an apparent gradual decrease in dilatation of the small bowel in the distal jejunum and proximal ileum. No clear transitional zone is present. Pelvis: There is gas and fluid in the rectosigmoid colon as well as in the cecum. The urinary bladder is not distended. There is no evidence of free fluid. There has been hysterectomy. There is no evidence of acute bony abnormality. IMPRESSION: Ileus versus partial small bowel obstruction, the possibility of gastroenterocolitis cannot be excluded. The possibility of aspiration pneumonia cannot be excluded. Electronically signed by Pepe Burgos 11/23/2019 7:13 AM
[2019-11-23 07:29] LABS: URINE SOURCE CATH
[2019-11-23] MEDS ORDERED: ZITHROMAX 500 MG/NS 500 MG/250 ML IVPB IV ONE (07:39)
[2019-11-23] MEDS ORDERED: ROCEPHIN 1 GM in NS 50 ML IV ONE (07:39)
[2019-11-23 07:51] LABS: BILIRUBIN URINE NEGATIVE (NEGATIVE); BLOOD URINE TRACE (NEGATIVE); COLOR YELLOW; GLUCOSE URINE 70 mg/dL (NEGATIVE); KETONE URINE NEGATIVE (NEGATIVE); LEUKOCYTES URINE NEGATIVE (NEGATIVE); NITRITE URINE NEGATIVE (NEGATIVE); PH URINE 6.5; PROTEIN URINE 100 mg/dL (NEGATIVE); TURBIDITY URINE CLEAR (CLEAR); UROBILINOGEN URINE NORMAL (NORMAL)
[2019-11-23 07:52] LABS: UR EPITHELIAL CELLS <10 /HPF (<10); URINE BACTERIA NEGATIVE /HPF; URINE RBC <10 /HPF (<10); URINE WBC <10 /HPF (<10)
[2019-11-23 08:01] LABS: SP GRAVITY URINE 1.025
[2019-11-23] MEDS ORDERED: ZOFRAN IV PRN (08:01)
[2019-11-23 08:02] LABS: UR AMPHETAMINES QUAL PRESUMPTIVE POSITIVE (NONE DETECT); UR BARBITUATES QUAL NONE DETECTED (NONE DETECT); UR BENZODIAZEPIN QUAL NONE DETECTED (NONE DETECT); UR CANNABINOIDS QUAL PRESUMPTIVE POSITIVE (NONE DETECT); UR COCAINE QUAL NONE DETECTED (NONE DETECT); UR METHADONE QUAL NONE DETECTED (NONE DETECT); UR OPIATES QUAL NONE DETECTED (NONE DETECT); UR OXYCODONE QUAL NONE DETECTED (NONE DETECT); UR PCP QUAL NONE DETECTED (NONE DETECT)
--- NOTE | 2019-11-23 08:02 | Diag Imaging Result Doc PS360 ---
EXAM: CHEST/ABD TUBE PLACEMENT 11/23/2019 HISTORY: tube placement TECHNIQUE: NG tube placement portable at 0751 COMMENT: There is an NG tube with its tip in the stomach. There is gaseous dilatation of multiple small bowel loops in the upper abdomen. There is some gas visible in the transverse colon and splenic flexure. IMPRESSION: NG tube in the stomach. Electronically signed by Pepe Burgos 11/23/2019 8:00 AM
[2019-11-23] MEDS: MORPHINE IV PRN ×3 (11:54→22:14)
[2019-11-23] MEDS: ZOSYN 3.375 GM in NS 50 ML IV SCH ×3 (11:54→22:15)
[2019-11-23] MEDS: NS 1,000 ML IV SCH (13:00)
--- NOTE | 2019-11-23 13:39 | HISTORY AND PHYSICAL ---
CHIEF COMPLAINT: Abdominal pain, nausea, vomiting, and diarrhea. HISTORY OF PRESENT ILLNESS: This is a 48-year-old female who presents to the emergency room complaining of 2 days of left lower quadrant and left back pain along with nausea, vomiting, and diarrhea. She denied any other symptoms. She states that she tried taking Benadryl at home for this with no relief. Therefore, she presented to the emergency room. PAST MEDICAL HISTORY: Chronic back pain, depression, anxiety. PAST SURGICAL HISTORY: Cholecystectomy and hysterectomy. SOCIAL HISTORY: She smokes a pack a day. She smokes marijuana daily. She denies any alcohol use. ALLERGIES: Latex which causes a rash. HOME MEDICATIONS: None. REVIEW OF SYSTEMS: Discussed with the patient with pertinent positives as stated in the HPI. She denied any syncope, dizziness, chest pain, palpitations, any black or bloody vomitus or stools, any hematuria, dysuria, frequency, urgency, any shortness of breath, productive cough, PND, orthopnea. PHYSICAL EXAMINATION: GENERAL: This is a 48-year-old female who is sitting up on the stretcher in the emergency room in mild distress. VITAL SIGNS: Blood pressure is 136/73 with a heart rate of 80, respirations 17, temperature is 97.5 degrees with room air saturations 97-98%. EYES: Pupils are equal, round, react to light. EOMs are intact. HEENT: Head is normocephalic, atraumatic. Mucous membranes are moist. NECK: Supple with trachea midline. CARDIOVASCULAR: Regular rate and rhythm. S1 and S2 appreciated. No murmur. PULMONARY: Breath sounds are clear with no increased work of breathing noted. Chest rises and falls symmetric with respiration. GASTROINTESTINAL: Abdomen is soft with left lower quadrant tenderness. Hypoactive bowel sounds throughout note. No NG tube is in place. NEUROLOGIC: She is alert and oriented. SKIN: Warm and dry. LABS: WBC is 8.6 with hemoglobin 17.7, hematocrit 56.4, platelets of 350,000. Sodium 137, potassium 4.3, BUN 22, creatinine 1 with a glucose of 189. Urinalysis is essentially negative. Urine drug screen is presumptive positive for amphetamines and cannabinoids. CT of the abdomen and pelvis reveals ileus versus partial small bowel obstruction with the possibility of gastroenteritis cannot be excluded. Aspiration pneumonia cannot be excluded. Chest x-ray revealed severely low lung volumes. ASSESSMENT AND PLAN: 1. Ileus versus small-bowel obstruction. She will be NPO. Nasogastric tube will stay intact. She has been evaluated by Dr. Harley Rogers. Check a KUB in the morning. 2. Aspiration pneumonia. Antibiotic coverage of Zosyn. Incentive spirometer and then further antibiotics will be culture driven. 3. Diarrhea. Checks to get stool studies. We will give no antidiarrheals until we get results of Clostridium difficile toxin. 4. Coronavirus Disease-19 test is pending. Plan was discussed with Dr. Lamb. Further treatments pending hospital course. Dictated by CHIKA Rendon for Alvin Corona MD cc: CHIKA Rendon MD
--- NOTE | 2019-11-23 14:40 | GENERAL SURGERY CONSULTATION ---
DATE: 11/23/2019 REASON FOR CONSULTATION: Possible bowel obstruction versus gastroenteritis. CHIEF COMPLAINT: Nausea, vomiting, diarrhea. HISTORY OF PRESENT ILLNESS: This is a 48-year-old female who has a history of THC and amphetamine use, who presented to the ER with a several day history of nausea, vomiting and diarrhea. This is nonbloody. She has had no fevers, but unable to tolerate oral hydration. CT scan was obtained. NG tube was placed and she was admitted. I was consulted for further management. She has never had a colonoscopy, has been unable to do this due to her lack of insurance. MEDICAL HISTORY: Chronic pain, depression and anxiety. SURGICAL HISTORY: Cholecystectomy, hysterectomy. SOCIAL HISTORY: She smokes a pack a day, uses marijuana daily. Denies alcohol. She was amphetamine positive. It is unclear if this was Adderall or if this was methamphetamine. REVIEW OF SYSTEMS: A 10-point review of systems was performed and negative other than what was mentioned in the HPI. FAMILY HISTORY: Negative for colon or rectal cancer. PHYSICAL EXAMINATION: Vital Signs: She is afebrile, pulse 78, blood pressure 147/81, oxygen saturation is 97%. General: She is alert, no acute distress. HEENT: No scleral icterus. No cervical mass. Cardiovascular: Normal rate. Pulmonary: No increased work of breathing. Abdomen: Protuberant, mildly distended, but soft, nontender. No peritonitis. Integument: Warm and dry. Psychiatric: Appropriate affect. Neurologic: No gross deficits. Peripheral vascular: No lower extremity edema. Lymphatic: No cervical, axillary or inguinal adenopathy. LABORATORY DATA: White count is 8, hematocrit is 56, platelets 350,000, creatinine is 1.0. Bilirubin was normal. AST, ALT, and alkaline phosphatase are normal. Urinalysis negative for nitrates and leukocytes. UDS is positive for amphetamines and cannabinoids. CT scan shows ileus versus partial obstruction and possible gastroenterocolitis, possible aspiration pneumonia. ASSESSMENT AND PLAN: Agree with NG tube decompression. She is having some degree of bowel function, which would be more consistent with enterocolitis, but she also seems to have some degree of aspiration pneumonia. It is possible that this is drug related. We would recommend hydration, correction of large electrolyte. She has been ruled out for Coronavirus Disease-19. We will follow along but doubtful she will require surgical intervention. Endoscopic evaluation seems to be a recurrent issue for her and may be reasonable. cc: Sourav Rogers MD
[2019-11-24] MEDS: ATIVAN IV PRN ×2 (03:04→11:39)
[2019-11-24] MEDS: NS 1,000 ML IV SCH ×2 (03:04→09:31)
[2019-11-24 05:37] LABS: BASO# 0.01 X1000 (0.0-0.2); BASO% 0.1 % (0.0-0.8); EOS# 0.13 X1000 (0.0-0.7); EOS% 1.9 % (0.0-10.0); HEMATOCRIT 40.9 % (37.0-47.0); HEMOGLOBIN 12.9 g/dL (12.0-16.0); LYMPH# 1.88 X1000 (1.2-3.4); LYMPH% 28.2 % (20.5-51.1); MCH 29.1 PG (27-31); MCHC 31.5 g/dL (33-37); MCV 92.3 FL (81-99); MONO# 0.74 X1000 (0.11-0.59); MONO% 11.1 % (1.7-9.3); MPV 10.3 FL (7.4-10.4); NEUT# 3.91 X1000 (1.4-6.5); NEUT% 58.7 % (42.2-75.2); PLT 242 X1000 (130-400); RBC 4.43 XMIL (4.2-5.4); WBC 6.67 X1000 (4.8-10.8)
[2019-11-24] MEDS: MORPHINE IV PRN ×5 (05:52→21:29)
[2019-11-24] MEDS: ZOSYN 3.375 GM in NS 50 ML IV SCH ×5 (05:53→21:49)
[2019-11-24 06:02] LABS: AGAP 10; ALB/GLOB RATIO 0.8; ALBUMIN 2.7 g/dL (3.5-5.0); ALKALINE PHOSPHATASE 96 U/L (32-104); BUN 12 mg/dL (8-22); CALCIUM 7.8 mg/dL (8.8-10.2); CHLORIDE 108 mmol/L (98-107); COSMO 281; CREATININE 0.8 mg/dL (0.5-0.9); ESTIMATED GFR > 60; GLUCOSE 94 mg/dL (70-104); GOT 288 U/L (10-30); GPT 227 U/L (10-36); MAGNESIUM 1.9 mg/dL (1.5-2.7); POTASSIUM 3.6 mmol/L (3.5-5.1); SODIUM 141 mmol/L (136-145); TCO2 23 mmol/L (25-35); TOTAL BILIRUBIN 0.71 mg/dL (0.20-1.00)
[2019-11-24 06:47] LABS: EOS 2 % (1-10); LYMPHS 34 % (21-51); SEGS 56 % (42-75)
[2019-11-24] MEDS ORDERED: ROCEPHIN 1 GM in NS 50 ML IV SCH (08:15)
[2019-11-24] MEDS ORDERED: ZITHROMAX 500 MG/NS 500 MG/250 ML IVPB IV SCH (08:15)
--- NOTE | 2019-11-24 08:51 | Diag Imaging Result Doc PS360 ---
EXAM: KUB ABDOMEN HISTORY: SBO TECHNIQUE: Single view COMPARISON: 11/23/2019 FINDINGS: The gallbladder has been removed. The bowel loops are less distended on the current exam. No nasogastric tube identified. No organomegaly. IMPRESSION: Interval improvement Electronically signed by Nikita Ponce 11/24/2019 8:49 AM
--- NOTE | 2019-11-24 11:49 | GENERAL SURGERY PROGRESS NOTE ---
DATE: 11/24/2019 SUBJECTIVE: The patient inadvertently removed her NG tube last night and refused replacement. She denies vomiting. She does have some nausea. No severe abdominal pain. She did have 1 episode of diarrhea yesterday. OBJECTIVE: Vital Signs: She is afebrile. Vital signs are stable. General: She is awake, alert, oriented x3, in no acute distress. Gastrointestinal: Soft, nondistended, mildly tender diffusely. She does have bowel sounds. LABORATORY: CBC and metabolic profile reviewed and unremarkable. IMAGING: Abdominal x-ray today shows interval improvement with less distention of bowel loops. ASSESSMENT AND PLAN: A 48-year-old female with probable recurrent enterocolitis. She is being ruled out for Coronavirus disease 2019 as well. We will start her on a clear liquid diet today and monitor for progress. cc: Jas Duran MD
--- NOTE | 2019-11-24 12:59 | PROGRESS NOTE ---
DATE: 11/24/2019 SUBJECTIVE: The patient reports not having more diarrhea. She is not vomiting. She feels better, not requiring any oxygen supplementation. OBJECTIVE: Vital Signs: Temperature 97.9 degrees, heart rate 87, respiratory rate 16, blood pressure 136/85, O2 saturation 96% on room air. General: This is a 48-year-old female, lying in bed, in no acute distress. Cardiovascular: S1 and S2 heard. No murmurs, gallops or rubs. Regular rate and rhythm. Respiratory: Clear bilaterally to auscultation. No work of breathing or using accessory muscles. Abdomen: Soft. Mild tenderness to palpation in the left lower quadrant but there are no signs of peritoneal irritation. Bowel sounds present. No organomegaly. Extremities: No clubbing, cyanosis, or edema. Peripheral pulses present in both legs. Neurological: Patient alert oriented x3. Moves 4 extremities. LABORATORY DATA: Reviewed. ASSESSMENT AND PLAN: 1. Acute enterocolitis. 2. Aspiration pneumonia. 3. Diarrhea. 4. Coronavirus Disease 2019 suspected. PLAN: At this point, patient is getting better. She reports no more episodes of nausea and vomiting. She unintentionally removed the NG tube yesterday. I think she is feeling better. The x-ray is definitely getting better. We will continue with antibiotics until tomorrow. If the patient is tolerating diet and not requiring any oxygen supplementation and considering that this patient is not developing any fever and her white cell count is back to normal, then she may be discharged tomorrow. cc: Erik Joshi MD
[2019-11-24] MEDS: VALIUM PO SCH ×2 (14:11→21:13)
[2019-11-25] MEDS: ZOSYN 3.375 GM in NS 50 ML IV SCH ×3 (03:55→17:38)
[2019-11-25] MEDS: MORPHINE IV PRN (03:56)
--- NOTE | 2019-11-25 08:34 | GENERAL SURGERY PROGRESS NOTE ---
DATE: 11/25/2019 SUBJECTIVE: The patient continues to have diarrhea. No vomiting. She is tolerating a diet, eating regular food, and drinking plenty of liquids, at least over 4 L yesterday. OBJECTIVE: She is afebrile. Vital signs are stable. General: She is awake, alert, and oriented x3. No acute distress. Gastrointestinal: Soft, nondistended. Mild tenderness in the abdomen generally. No rebound or guarding. No mass present. Laboratory: Covid 19 negative. Imaging: None today but yesterday, her abdominal x-ray showed interval improvement of small bowel distention. ASSESSMENT AND PLAN: A 48-year-old female with enterocolitis, improving. Tolerating a diet and stable for discharge from our standpoint. cc: Jas Duran MD
[2019-11-25] MEDS: VALIUM PO SCH ×2 (09:51→22:40)
[2019-11-25] MEDS ORDERED: PROTONIX IV ONE (13:03)
[2019-11-25] MEDS ORDERED: PHENERGAN PO ONE (13:03)
[2019-11-25] MEDS ORDERED: PHENERGAN IV ONE (13:55)
[2019-11-25] MEDS ORDERED: SODIUM CHLORIDE 0.9% INJ ONE (13:55)
[2019-11-25] MEDS: SODIUM CHLORIDE 0.9% INJ ONE (14:36)
[2019-11-25] MEDS: PHENERGAN IM PRN (20:19)
[2019-11-26] MEDS: PHENERGAN IM PRN (04:54)
[2019-11-26 07:44] VITALS: BP 164/90
[2019-11-26] MEDS: VALIUM PO SCH (09:10)
--- NOTE | 2019-11-26 12:09 | GENERAL SURGERY PROGRESS NOTE ---
DATE: 11/26/2019 SUBJECTIVE: She continues to have loose stools. No vomiting. Remains a little bloated. No fevers. No tachycardia. OBJECTIVE: Vital Signs: Blood pressure 164/90. General: She is alert. Abdomen: Soft, nontender, nondistended. LABORATORY DATA: No new labs this morning, but her last labs showed a normal white count. ASSESSMENT AND PLAN: A 48-year-old female with resolving bowel obstruction versus enteritis. Will continue supportive care, and defer management to the Medical Service. cc: Sourav Rogers MD
--- NOTE | 2019-11-26 17:45 | DISCHARGE SUMMARY ---
ADMISSION DATE: 11/23/2019 DISCHARGE DATE: 11/26/2019 DISCHARGE DIAGNOSES: 1. Acute enterocolitis. 2. Aspiration pneumonia. 3. Diarrhea, resolved. 4. Coronary artery disease has been ruled out. CONSULTATIONS: Dr. Harley Rogers from General Surgery. PROCEDURES: 1. Abdomen and pelvis CT showed ileus versus partial small-bowel obstruction, and the possibility of gastroenteritis cannot be excluded. 2. NG tube placement. HOSPITAL COURSE: This is a 48-year-old female who presented to the emergency department complaining of 2 day history of left lower quadrant and left back pain along with nausea, vomiting, and diarrhea. She presented to the emergency department where she was found out to have an ileus versus small bowel obstruction. So this patient was admitted to the hospital. Placed on NG tube feeding which next the day of admission, patient inadvertently removed. The patient was doing fine, less diarrhea or vomiting. Actually Surgery was consulted, did think this patient may have enterocolitis or bowel obstruction. In any case, the patient was reporting feeling better, a little bit bloated, but she was feeling okay, so we decided to send this patient home with oral antibiotics and medication for nausea. DISCHARGE PHYSICAL EXAMINATION: Vital Signs: Temperature 98.8 degrees, heart rate 92, respiratory rate 18, blood pressure 164/90, O2 saturation 97% on room air. General: This is a 48- year-old female lying in bed, in no acute distress. Cardiovascular: S1, S2 heard. No murmurs, gallops, or rubs. Regular rate and rhythm. Respiratory: Clear bilaterally to auscultation. No work of breathing or using accessory muscles. Abdomen: Soft, nontender to palpation. Bowel sounds present. No organomegaly. Extremities: No clubbing, cyanosis, or edema. Peripheral pulses present in both legs. Neurological: The patient is alert and oriented x3. Moves 4 extremities. DISCHARGE DISPOSITION: Home to self-care. LIST OF MEDICATIONS: 1. Ciprofloxacin 500 mg 1 tablet p.o. daily for 5 days. 2. Phenergan 50 mg 1 tablet p.o. q.4 hours as needed for nausea. Time discharging this patient is 32 minutes. cc: Erik Joshi MD
== END 2019-11-26 12:05 | disposition home or self-care (01) | DRG 391 ==
LOC: ED 04:40 → SUATTDRO 04:41 → 4N 04:41
PROVIDERS: ATTEND Internal Medicine